=== PATIENT | female | born 1970 | race Caucasian/White ===

== ENCOUNTER 2020-07-09 09:34 | Outpatient (RCR) | payer OTHER, SELFPAY ==
[2015-01-07 10:27] VITALS: BMI 20.2
[2020-07-09] MEDS: COVID-19 VACC, MRNA(PFIZER)/PF 30 MCG/0.3 ML SYRINGE IM (07:12)
[2020-07-30] MEDS: COVID-19 VACC, MRNA(PFIZER)/PF 30 MCG/0.3 ML SYRINGE IM (07:07)
== END 2020-07-09 23:59 ==
LOC: IMMUN 09:34
PROVIDERS: Visit Provider Family Medicine
DX: Z23 Encounter for immunization (principal)
CPT/HCPCS: 0001A; 0002A; 91300

== ENCOUNTER 2023-04-24 09:28 | Emergency (ER) | payer BC, SELFPAY ==
[2023-04-24 09:29] VITALS: BP 120/67; PULSE 74; RESP 14; TEMP 37.2; O2SAT 100; BMI 23.7
--- NOTE | 2023-04-24 09:50 | EDS_ITS ---
HPI History of Present Illness Chief Complaint: Other, Pain/Inj Narrative Narrative: Patient presents with a sore area on the posterior left side of her throat. As ago, patient was eating a piece of pineapple at a constitution party. As she swallowed it she just noticed that there was a unhealed section on it so it had some of the rough or outside. She had discomfort when she swallowed it like it poked into her throat. She was concerned that part of the spike of the outside skin might be still in the throat. She tried to pull that out with fingers. She caused a small amount of bleeding but that stopped. She just wants to make sure that there is not going to be notable swelling or problems that she is about to go away on a ski vacation. She is on no medications and has no chronic medical conditions. She is not having trouble swallowing at this time but the area is slightly sore. Voice is unchanged. PFSH PFSH Home Medications oxycodone-acetaminophen 5 mg-325 mg tablet 1 - 2 tab PO Q4H PRN PRN Pain #30 tabs 01/07/15 [Rx Last Taken Unknown] Allergy/AdvReac Type Severity Reaction Status Date / Time No Known Allergies Allergy Verified 12/30/14 16:23 Social History Smoking Status: Never smoker ROS ROS ED Constitutional Constitutional ED: Denies chills or fever(s) ENT ENT ED: Reports sore throat; Denies ear pain or rhinorrhea Cardiovascular Cardiovascular: Denies chest pain Respiratory/Chest Respiratory/Chest: Denies cough or dyspnea Gastrointestinal Gastrointestinal: Denies nausea or vomiting Integumentary Reports Abrasions; Denies abscess or rash Neurologic Neurologic: Denies headache(s) Hematologic/Lymphatic Hematologic/Lymphatic: Denies easy bleeding or easy bruising Allergic/Immunologic Allergic/Immunologic ED: Denies urticaria EXAM Physical Exam Narrative Exam Narrative: General: Patient awake alert sitting comfortably in bed. Vitals normal. Speech is normal carries on normal conversation nontoxic. HEENT: No external swelling. Again, speech is normal. Nasal passages are normal. Internally I can see a small area of abrasion that is about 1 x 3 mm on the posterior left aspect of the soft palate. There is no swelling locally. But there is some slight bruising around it. I do not see any foreign material protruding. There is no fullness. I can press the area with the tongue blade and there is no catching as if there was something sticking out. There is no sign of infection. Neck: No sign of external swelling or lymphadenopathy Cardiorespiratory shows easy unlabored breathing clear lungs and normal saturations at 100% on room air showing no hypoxia. Const Vital Signs: 04/24/23 09:29 Temperature 98.9 F Temperature Source Temporal Pulse Rate 74 Respiratory Rate 14 Blood Pressure 120/67 Blood Pressure Mean 84 Pulse Ox 100 Oxygen Delivery Method Room Air MDM MDM MDM Narrative Medical decision making narrative: I explained to the patient that certainly possible she could have gotten some fibers of this pineapple in the posterior pharynx. But the damage done trying to take out what cannot be seen would be much greater than letting this come out on its own. If there is something there will likely get local inflammation and then drain and work itself out. But my suspicion is that this is more likely an abrasion and will heal without issue. She can do warm salt water gargles. She could dab a small amount of Orajel on a Q-tip right on the area if it is h urting. She should avoid hot or spicy foods. If she develops swelling, fevers, trouble breathing or swallowing she should return. I do not think there is indication for CT scan or blood work at this time. Discharge Plan Triage Chief Complaint: Other, Pain/Inj ED Provider: Devonte Mcmahan Dx/Rx/DC Orders Clinical Impression: Abrasion of pharynx Instructions: ED Pharyngeal Abrasion Prescriptions: No Action oxycodone-acetaminophen 1 TABLET tablet 1 - 2 tab PO Q4H PRN PRN (Reason: Pain) Qty: 30 0RF Primary Care Provider: Care Physician,No Primary Referrals: Care Physician,No Primary [Primary Care Provider] - Activity Restrictions/Additional Instructions: Follow-up with your physician if not better in 2 to 3 days. You may use a small amount of Orajel on a Q-tip to dab on the area occasionally for local pain relief. Disposition Disposition: Home, Self Care
--- OUTSIDE RECORDS SUMMARY | 2023-04-24 10:25 | XMS RPT_ITS | CCD ---
Author Name Unknown Address [address] [place] [address] Organization [facility] Care Team Providers Care [employer] Name Role Phone Unavailable Primary Care Provider MAUDE Escalera Attending Unavailable MAUDE NIÑO Referring Unavailable LENY JACOBSEN Referring Unavailable LENY JACOBSEN Attending Unavailable Unavailable Primary Care Provider Byron gonzalez Allergies Allergy Classification Reported Allergen(s) Allergy Type Date of Onset Reaction(s) Facility (9 sources) Seasonal allergy; Translations: [SEASONAL ALLERGIES] Allergy to substance 10-18-2012 Itching [facility] (9 sources) Bees; Translations: [BEES] Propensity to adverse reactions 05-24-2006 [facility] Work Phone: Medications Current Medications Medication Drug Class(es) Dates Sig (Normalized) Sig (Original) azithromycin 250 mg oral tablet (1 source) Macrolide Antimicrobial Start: 10-08-2022 End: 10-13-2022 azithromycin (ZITHROMAX Z-GENE) 250 mg tablet Indications: Bronchitis Take 2 tablets day one, then, 1 tablet daily until gone. 6 tablet 0 10/08/2022 10/13/2022 Active Completed/Discontinued Medications Medication Drug Class(es) Dates Sig (Normalized) Sig (Original) [id number] 200 actuat albuterol 0.09 mg/actuat metered dose inhaler (3 sources) beta2-Adrenergic Agonist Start: 05-01-2021 End: 05-11-2022 take 2 puff(s) by inhalation every six hours as needed for wheezing albuterol HFA (PROVENTIL HFA, VENTOLIN HFA) 90 mcg/actuation inhaler Inhale 2 Puffs as instructed every 6 hours as needed for wheezing/shortness of breath. 1 Each 0 05/01/2021 05/11/2022 Discontinued Problems Problem Classification Problem Date Documented Date Episodic/Chronic Chronic obstructive pulmonary disease and bronchiectasis (1 source) Bronchitis; Translations: [Bronchitis, not specified as acute or chronic] Episodic Genitourinary symptoms and ill-defined conditions (2 sources) Increased frequency of urination; Translations: [Frequency of micturition] Episodic Menopausal disorders (1 source) Vaginal dryness; Translations: [Menopausal and female climacteric states] Chronic Nonmalignant breast conditions (9 sources) Mammographic microcalcification of breast; Translations: [Mammographic microcalcification found on diagnostic imaging of breast] Onset: 5 11-08-2014 Episodic Other screening for suspected conditions (not mental disorders or infectious disease) (7 sources) Patient encounter status; Translations: [Encounter for screening for malignant neoplasm of colon] Onset: 2 Episodic Unclassified (1 source) Dense breast tissue; Translations: [Dense breast tissue] Onset: 3 Results Test Name Value Interpretation Reference Range Facil ity Vital Signs Date Time Vital Sign Value Performing Clinician Jamari lity 10-08-2022 15:03-0400 Body temperature 97.81 [degF] Carlene Rosario MOLDED GRID AND PARTS INSPECTOR.AERONAUTICAL PROJECT ENGINEER Work Phone: [facility] 10-08-2022 15:03-0400 Body weight 55.52 kg Carlene Rosario APRN.AERONAUTICAL PROJECT ENGINEER Work Phone: [facility] 10-08-2022 15:03-0400 Diastolic blood pressure 78 mm[Hg] Carlene Rosario MOLDED GRID AND PARTS INSPECTOR.AERONAUTICAL PROJECT ENGINEER Work Phone: [facility] 10-08-2022 15:03-0400 Heart rate 69 /min Carlene Rosario MOLDED GRID AND PARTS INSPECTOR.AERONAUTICAL PROJECT ENGINEER Work Phone: [facility] 10-08-2022 15:03-0400 Respiratory rate 16 /min Carlene Rosario MOLDED GRID AND PARTS INSPECTOR.AERONAUTICAL PROJECT ENGINEER Work Phone: [facility] 10-08-2022 15:03-0400 SaO2% (BldA) [Mass fraction] 97 % Carlene Rosario MOLDED GRID AND PARTS INSPECTOR.AERONAUTICAL PROJECT ENGINEER Work Phone: [facility] 10-08-2022 15:03-0400 Systolic blood pressure 122 mm[Hg] Carlene Rosario MOLDED GRID AND PARTS INSPECTOR.AERONAUTICAL PROJECT ENGINEER Work Phone: [facility] 06-23-2022 18:23-0500 Body temperature 98.01 [degF] Monica Praisler-Wood MOLDED GRID AND PARTS INSPECTOR.AERONAUTICAL PROJECT ENGINEER Work Phone: [facility] 06-23-2022 18:23-0500 Diastolic blood pressure 60 mm[Hg] Monica Praisler-Wood MOLDED GRID AND PARTS INSPECTOR.AERONAUTICAL PROJECT ENGINEER Work Phone: [facility] 06-23-2022 18:23-0500 Heart rate 69 /min Monica Praisler-Wood MOLDED GRID AND PARTS INSPECTOR.AERONAUTICAL PROJECT ENGINEER Work Phone: [facility] 06-23-2022 18:23-0500 Respiratory rate 16 /min Monica Praisler-Wood MOLDED GRID AND PARTS INSPECTOR.AERONAUTICAL PROJECT ENGINEER Work Phone: [facility] 06-23-2022 18:23-0500 SaO2% (BldA) [Mass fraction] 100 % Monica Praisler-Wood MOLDED GRID AND PARTS INSPECTOR.AERONAUTICAL PROJECT ENGINEER Work Phone: [facility] 06-23-2022 18:23-0500 Systolic blood pressure 110 mm[Hg] Monica Praisler-Wood MOLDED GRID AND PARTS INSPECTOR.AERONAUTICAL PROJECT ENGINEER Work Phone: [facility] 05-11-2022 12:57-0500 Body height 156.8 cm Leny Jacobsen APRN.AERONAUTICAL PROJECT ENGINEER Work Phone: [facility] 05-11-2022 12:57-0500 Body weight 56.25 kg Leny Jacobsen APRN.AERONAUTICAL PROJECT ENGINEER Work Phone: [facility] 05-11-2022 12:57-0500 Diastolic blood pressure 68 mm[Hg] Leny Jacobsen MOLDED GRID AND PARTS INSPECTOR.AERONAUTICAL PROJECT ENGINEER Work Phone: [facility] 05-11-2022 12:57-0500 Systolic blood pressure 112 mm[Hg] Leny Jacobsen MOLDED GRID AND PARTS INSPECTOR.AERONAUTICAL PROJECT ENGINEER Work Phone: [facility] 02-23-2022 09:35-0400 Diastolic blood pressure 55 mm[Hg] Maude Niño MD Work Phone: [facility] 02-23-2022 09:35-0400 Heart rate 69 /min Maude Niño MD Work Phone: [facility] 02-23-2022 09:35-0400 SaO2% (BldA) [Mass fraction] 100 % Maude Niño MD Work Phone: [facility] 02-23-2022 09:35-0400 Systolic blood pressure 110 mm[Hg] Maude Niño MD Work Phone: [facility] 02-23-2022 09:25-0400 Respiratory rate 16 /min Maude Niño MD Work Phone: [facility] 02-23-2022 07:41-0400 Body temperature 98.29 [degF] Maude Niño MD Work Phone: [facility] 02-23-2022 07:41-0400 Body weight 55.6 kg Maude Niño MD Work Phone: [facility] Encounters Encounter Date Encounter Type Care Provider Facility Start: 02-04-2023 Documentation procedure Mammog sandy Coordinator [facility] Start: 02-04-2023 Letter encounter Mammography Coordinator [facility] Department Start: 02-03-2023 End: 02-03-2023 ambulatory LENY JACOBSEN Facility:[facility] Start: 02-03-2023 End: 02-03-2023 Subsequent hospital visit by physician Screen Mammo [facility] Wstr Mammogram Procedures Date Procedure Procedure Detail Performing Clinician Start: 02-03-2023 Screening digital br east tomosynthesis bi Leny Jacobsen MOLDED GRID AND PARTS INSPECTOR.AERONAUTICAL PROJECT ENGINEER Work Phone: Start: 06-23-2022 Urnls dip stick/tabl et rgnt auto w/o microscopy Raj Aldana MOLDED GRID AND PARTS INSPECTOR.AERONAUTICAL PROJECT ENGINEER Work Phone: Start: 02-23-2022 Colonoscopy flx dx w /collj spec when pfrmd Maude Niño MD Work Phone: Start: 02-23-2022 Colonoscopy Leny gonzalez MOLDED GRID AND PARTS INSPECTOR.AERONAUTICAL PROJECT ENGINEER Work Phone: Start: 10-27-2020 Mammography Maude Niño MD Work Phone: Start: 09-24-2015 Adult depression scr eening assessment Maude Niño MD Work Phone: Plan of Treatment Date Care Activity Detail Author Start: 02-24-2032 Colonoscopy COLONOSCOPY [facility] Start: 02-24-2032 COLORECTAL CANCER SCREENING COLORECTAL CANCER SCREENING [facility] Start: 10-09-2025 HPV TESTING HPV TESTING [facility] Start: 10-09-2025 PAP TESTING PAP TESTING [facility] Start: 02-04-2024 Mammography Mammogram Screening [facility] Start: 12-23-2022 Covid-19 Vaccine () Covid-19 Vaccine () [facility] Start: 12-23-2022 Influenza vaccination [facility] Start: 05-29-2022 Shingrix Vaccine (2 of 2) Shingrix Vaccine (2 of 2) [facility] Start: 04-24-2022 DEPRESSION ASSESSMENT DEPRESSION ASSESSMENT [facility] Start: 12-23-2021 Influenza vaccination INFLUENZA (#1) [facility] Start: 10-27-2021 Mammography MAMMOGRAM [facility] Start: 07-28-2021 COVID-19 VACCINE (4 - Booster for Pfizer series) COVID-19 VACCINE (4 - Booster for Pfizer series) [facility] Start: 07-31-2019 Urine microalbumin profile [facility] Start: 2018 SHINGRIX VACCINE (1 of 2) SHINGRIX VACCINE (1 of 2) [facility] Start: 09-23-2016 Adult depression screening assessment DEPRESSION SCREENING [facility] Start: 2013 COLOGUARD (FIT-DNA) COLOGUARD (FIT-DNA) [facility] Start: 2013 Colonoscopy COLONOSCOPY [facility] Start: 2013 COLORECTAL CANCER SCREENING COLORECTAL CANCER SCREENING [facility] Start: [address] COLONOGRAPHY [facility] Start: 2013 DIABETES SCREEN DIABETES SCREEN [facility] Start: 2013 Diabetes Screening Diabetes Screening [facility] Start: 2013 FECAL OCCULT BLOOD FECAL OCCULT BLOOD [facility] Start: 2013 Lipid 1996 panel - Serum or Plasma Lipid Screening [facility] Start: 2013 LIPID SCREEN LIPID SCREEN [facility] Start: 2013 SIGMOIDOSCOPY SIGMOIDOSCOPY [facility] Start: 1986 HEPATITIS C SCREENING HEPATITIS C SCREENING [facility] Start: 1986 HIV SCREENING HIV SCREENING [facility] Start: 1968 HEPATITIS B (1 of 3 - 3-dose series) HEPATITIS B (1 of 3 - 3-dose series) [facility] Start: 1968 Hepatitis B Vaccine (1 of 3 - 3-dose series) Hepatitis B Vaccine (1 of 3 - 3-dose series) [facility] Bacteria identified in Urine by Culture URINE CULTURE Microbiology Routine Urinary frequency 06/23/2022 7:43 PM EST [facility] Work Phone: End: 06-10-2023 FAY SCREENING W ELLIS FAY SCREENING W ELLIS Radiology Routine Encounter for screening mammogram for breast cancer Dense breast tissue 1 Occurrences starting 05/11/2022 until 06/10/2023 [facility] Work Phone: Immunizations Immunization Date Immunization Notes Care Provider Marshall talbot 01-31-2021 influenza virus vaccine, unspecified formulation Mammography Coordinator [facility] 07-30-2009 tetanus toxoid, redu demetrius diphtheria toxoid, and acellular pertussis vaccine, adsorbed Maude Niño MD Work Phone: [facility] Payers Date Payer Category Payer Unknown [id number] 2021 Unknown [id number] 2021 Unknown [id number] Social History Date Type Detail Facility Start: 02-23-2022 Tobacco smoking stat us SCIS Never smoked tobacco [facility] Work Phone: Start: 05-08-2021 End: 03-24-2022 Alcohol intake Current non-drinker of alcohol (finding) [facility] Start: 1970 Sex Assigned At Female C [facility] Start: 02-23-2022 Tobacco use and exposure Smokeless tobacco non-user [facility] Start: 05-11-2022 End: 10-08-2022 Alcohol intake Current drinker of alcohol (finding) [facility] Start: 05-11-2022 Alcohol Comment occasional [facility] Start: 03-31-2020 End: 10-08-2022 History of Social function [facility] Start: 03-31-2020 End: 10-08-2022 Tobacco use panel [facility] National Score (1-10 0), lower number is lower risk 60 [facility] Start: 01-13-2021 Gender identity Identifies as female gender (finding) [facility] Start: 01-13-2021 Sexual orientation Heterosexual (fin ding) [facility] Start: 02-13-2022 End: 02-23-2022 Exposure to SARS-CoV-2 (event) Not sure [facility] Clinical Notes 01-05-2022 to 02-04-2023 Letter - Coordinator, Mammography - 02/04/2023 7:26 AM EDTBSamina gilbert, Mammo Tech - 02/03/2023 9:10 AM EDTPatient InstructionsCarlene Rosario APRN.AERONAUTICAL PROJECT ENGINEER - 10/08/2022 3:08 PM EDTPatient Instructions Note Date & Type Note Facility 02-04-2023 Miscellaneous Notes February 06, 2023 PID: [id number] Vinita Panfilo Raines [address] [place] [address] Dear Ms. Raines, We are pleased to inform you that the results of your recent breast imaging exam on 02/03/2023 are normal. Your mammogram demonstrates that you have dense breast tissue, which could hide abnormalities. Dense breast tissue, in and of itself, is a relatively common condition. Therefore, this information is not provided to cause undue concern; rather, it is to raise your awareness and promote discussion with your health care provider regarding the presence of dense breast tissue in addition to other risk factors. Early detection of cancer is very important. We also understand recommendations regarding breast cancer screening are controversial. Please discuss with your primary care provider which strategy is best for you and whether a mammogram is right for you. Your imaging studies and report will be kept on file at [facility] as part of your permanent medical record and are available for your continuing care. Thank you for allowing us to help in meeting your health care needs. Sincerely, Dr. Magana Interpreting Radiologist [facility] (Normal over 40) documented in this encounter [facility] 02-03-2023 Note HNO ID: [id number] Author: Samina Mallory Mammo Tech Service: ? Author Type: Control System Manager Type: Progress Notes Filed: 02/03/2023 9:09 AM Note Text: Radiology Service Progress Note PATIENT NAME: Vinita Raines DATE OF SERVICE: February 03, 2023 TIME: 8:49 AM PATIENT IDENTITY VERIFICATION COMPLETED USING TWO (2) IDENTIFIERS: Name and Date of confirmed by patient verbally. FALL SCREENING: Has the patient had 2 falls in the last year or 1 fall with injury or currently using an Ambulatory Assistive Device (Walker, Cane, Wheelchair, Crutches, etc.)? No PATIENT GENDER DATA: Female. status: : No status: NO. PATIENT RELEVANT IMPLANT DATA REVIEWED: Not Applicable RADIOLOGY DEPARTMENT: Mammography PERIPHERAL IV DATA: Not applicable SIGNED BY: Brayan Mckenna February 03, 2023 8:49 AM [facility] 02-03-2023 History of Presen t illness Narrative Radiology Service Progress Note PATIENT NAME: Vinita Raines DATE OF SERVICE: February 03, 2023 TIME: 8:49 AM PATIENT IDENTITY VERIFICATION COMPLETED USING TWO (2) IDENTIFIERS: Name and Date of confirmed by patient verbally. FALL SCREENING: Has the patient had 2 falls in the last year or 1 fall with injury or currently using an Ambulatory Assistive Device (Walker, Cane, Wheelchair, Crutches, etc.)? No PATIENT GENDER DATA: Female. status: : No status: NO. PATIENT RELEVANT IMPLANT DATA REVIEWED: Not Applicable RADIOLOGY DEPARTMENT: Mammography PERIPHERAL IV DATA: Not applicable SIGNED BY: Brayan Mckenna February 03, 2023 8:49 AM documented in this encounter [facility] 10-08-2022 Note HNO ID: [id number] Author: Carlene Rosario APRN.ISIS Service: ? Author Type: Nurse Practitioner Type: Progress Notes Filed: 10/08/2022 3:28 PM Note Text: This is a 52 year old female who presents today with: Patient presents with: Cough: Cough x 10 days HISTORY OF PRESENT ILLNESS: Vinita Raines is a 52 year old female. Patient presents with: Cough: Cough x 10 days Cough for 10 days. Was initially dry and now seems to productive. Cream color mucus. No SOB or wheezing. Mild sore throat, post nasal drip. Was in [place] 11 days ago. No fever or chills. At home covid test was negative. Has tried Nyquil at bed time. Will be going to [place] in the next 10 days. PAST MEDICAL HISTORY: PAST MEDICAL HISTORY Diagnosis Date H/O bee sting allergy treated with oral antihistamines PAST SURGICAL HISTORY Procedure Laterality Date COLONOSCOPY 02/23/2022 repeat in 10 years LIG/TRNSXJ FLP TUBE ABDL/VAG APPR UNI/BI TONSILLECTOMY HX ALLERGIES Bees and Seasonal Allergies MEDICATIONS Current Outpatient Medications Medication Sig estradiol (ESTRACE) 0.01 % (0.1 mg/gram) vaginal cream Use 0.5 g vaginally two times a week. MULTIVITAMIN ORAL Take by mouth. phenazopyridine (PYRIDIUM) 200 mg tablet Take 1 tablet by mouth three times daily as needed. No current facility-administered medications for this visit. FAMILY HISTORY Problem Relation Age of Onset No Known Problems Mother Cancer Father PROSTATE Heart Father A Fib No Known Problems Sister No Known Problems Sister Breast Cancer Maternal Grandmother Diabetes Maternal Grandfather Stroke Paternal Grandfather No Known Problems Daughter No Known Problems Son Breast Cancer Other maternal cousin, negative genetic test for inheritable form Social History Tobacco Use Smoking status: Never Smokeless tobacco: Never Vaping Use Vaping Use: Never used Substance Use Topics Alcohol use: Yes Comment: occasional Drug use: No REVIEW OF SYSTEMS GENERAL: No weight loss, malaise or fevers/chills HEENT: + Sore Throat, post nasal drip NECK: Negative for lumps, goiter, pain and significant neck swelling RESPIRATORY: + Cough CARDIOVASCULAR: Negative for chest pain, leg swelling, orthopnea, or palpitations GI: No nausea, vomiting, or diarrhea/constipation. No hematochezia/melena. No heartburn or reflux symptoms. : No history of dysuria, frequency or incontinence MUSCULOSKELETAL: Negative for joint pain or swelling. SKIN: Negative for lesions, rash, and itching ENDOCRINE: Negative for cold or heat intolerance, polyuria, polydipsia and goiter NEURO: No history of headaches, syncope, paralysis, seizures or tremors MOOD: Negative for depression, anxiety, or suicidal ideation. EXAM: BP 122/78 Pulse 69 Temp 36.6 ?C (97.8 ?F) (Tympanic) Resp 16 Wt 55.5 kg (122 lb 6.4 oz) LMP 09/24/2018 SpO2 97% BMI 22.57 kg/m? PHYSICAL EXAM: General Appearance: Well appearing, alert, in no acute distress, well-hydrated, well nourished. Skin: Skin color, texture, turgor normal, no suspicious rashes or lesions. Head: Normocephalic, no masses, lesions, tenderness or abnormalities. Eyes: Anicteric sclera. Extraocular movements are intact. Ears: External ears normal, canals clear. TM's pearly wilson. Nose/Sinuses: Nares normal, septum midline, mucosa normal, no drainage or sinus tenderness. Oropharynx: Lips, mucosa, and tongue normal, teeth and gums normal, oropharynx normal. Neck: Supple, no adenopathy; thyroid symmetric, normal size, no bruits. Lungs: Lungs clear to auscultation. No wheezing, rhonchi, rales. Heart: RRR without murmur, gallop, or rubs. No ectopy. Extremities: No deformities, edema, skin discoloration, clubbing or cyanosis. Good capillary refill. . Peripheral Pulses: Normal, Capillary refill <2secs, strong peripheral pulses, Pulses palpable. Neurologic: Gait normal. Sensation grossly intact. ASSESSMENT/PLAN: 1. Bronchitis - ICD9: 490, ICD10: J40 - Due to going symptoms and upcoming travel, may start Z-Geen if symptoms do not improve the next 3 to 5 days. - Start prednisone 20 mg daily for 5 days. - May use [id number] cold and cough medication as needed for symptom management. - AZITHROMYCIN 250 MG TABLET - PREDNISONE 20 MG TABLET Follow-up as needed or sooner if symptoms do not improve. Discussed treatment plan and patient voices understanding. Patient's questions answered appropriately. Medications and potential side effects were discussed and patient voices understanding. Carlene Rosario APRN.AERONAUTICAL PROJECT ENGINEER This note was partially generated using [employer] voice recognition system. Note was reviewed for accuracy. There may be minor misspellings or grammar miscues with [employer] voice recognition. [facility] 10-08-2022 Instructions Carlene Rosario APRN.ISIS - 10/08/2022 3:17 PM EDT If symptoms do not improve, start zpack Start Prednisone 20 mg daily for 5 days. Stay well hydrated. Recommend using Flonase 1-2 times per day. May use over the counter cold and cough medication as needed. Follow up as needed. documented in this encounter [facility] 10-08-2022 History of Presen t illness Narrative This is a 52 year old female who presents today with: Patient presents with: Cough: Cough x 10 days HISTORY OF PRESENT ILLNESS: Vinita Raines is a 52 year old female. Patient presents with: Cough: Cough x 10 days Cough for 10 days. Was initially dry and now seems to productive. Cream color mucus. No SOB or wheezing. Mild sore throat, post nasal drip. Was in [place] 11 days ago. No fever or chills. At home covid test was negative. Has tried Nyquil at bed time. Will be going to [place] in the next 10 days. PAST MEDICAL HISTORY: PAST MEDICAL HISTORY Diagnosis Date H/O bee sting allergy treated with oral antihistamines PAST SURGICAL HISTORY Procedure Laterality Date COLONOSCOPY 02/23/2022 repeat in 10 years LIG/TRNSXJ FLP TUBE ABDL/VAG APPR UNI/BI TONSILLECTOMY HX ALLERGIES Bees and Seasonal Allergies MEDICATIONS Current Outpatient Medications Medication Sig estradiol (ESTRACE) 0.01 % (0.1 mg/gram) vaginal cream Use 0.5 g vaginally two times a week. MULTIVITAMIN ORAL Take by mouth. phenazopyridine (PYRIDIUM) 200 mg tablet Take 1 tablet by mouth three times daily as needed. No current facility-administered medications for this visit. FAMILY HISTORY Problem Relation Age of Onset No Known Problems Mother Cancer Father PROSTATE Heart Father A Fib No Known Problems Sister No Known Problems Sister Breast Cancer Maternal Grandmother Diabetes Maternal Grandfather Stroke Paternal Grandfather No Known Problems Daughter No Known Problems Son Breast Cancer Other maternal cousin, negative genetic test for inheritable form Social History Tobacco Use Smoking status: Never Smokeless tobacco: Never Vaping Use Vaping Use: Never used Substance Use Topics Alcohol use: Yes Comment: occasional Drug use: No REVIEW OF SYSTEMS GENERAL: No weight loss, malaise or fevers/chills HEENT: + Sore Throat, post nasal drip NECK: Negative for lumps, goiter, pain and significant neck swelling RESPIRATORY: + Cough CARDIOVASCULAR: Negative for chest pain, leg swelling, orthopnea, or palpitations GI: No nausea, vomiting, or diarrhea/constipation. No hematochezia/melena. No heartburn or reflux symptoms. : No history of dysuria, frequency or incontinence MUSCULOSKELETAL: Negative for joint pain or swelling. SKIN: Negative for lesions, rash, and itching ENDOCRINE: Negative for cold or heat intolerance, polyuria, polydipsia and goiter NEURO: No history of headaches, syncope, paralysis, seizures or tremors MOOD: Negative for depression, anxiety, or suicidal ideation. EXAM: BP 122/78 Pulse 69 Temp 36.6 C (97.8 F) (Tympanic) Resp 16 Wt 55.5 kg (122 lb 6.4 oz) LMP 09/24/2018 SpO2 97% BMI 22.57 kg/m PHYSICAL EXAM: General Appearance: Well appearing, alert, in no acute distress, well-hydrated, well nourished. Skin: Skin color, texture, turgor normal, no suspicious rashes or lesions. Head: Normocephalic, no masses, lesions, tenderness or abnormalities. Eyes: Anicteric sclera. Extraocular movements are intact. Ears: External ears normal, canals clear. TM's pearly wilson. Nose/Sinuses: Nares normal, septum midline, mucosa normal, no drainage or sinus tenderness. Oropharynx: Lips, mucosa, and tongue normal, teeth and gums normal, oropharynx normal. Neck: Supple, no adenopathy; thyroid symmetric, normal size, no bruits. Lungs: Lungs clear to auscultation. No wheezing, rhonchi, rales. Heart: RRR without murmur, gallop, or rubs. No ectopy. Extremities: No deformities, edema, skin discoloration, clubbing or cyanosis. Good capillary refill. . Peripheral Pulses: Normal, Capillary refill <2secs, strong peripheral pulses, Pulses palpable. Neurologic: Gait normal. Sensation grossly intact. ASSESSMENT/PLAN: 1. Bronchitis - ICD9: 490, ICD10: J40 - Due to going symptoms and upcoming travel, may start Z-Gene if symptoms do not improve the next 3 to 5 days. - Start prednisone 20 mg daily for 5 days. - May use [id number] cold and cough medication as needed for symptom management. - AZITHROMYCIN 250 MG TABLET - PREDNISONE 20 MG TABLET Follow-up as needed or sooner if symptoms do not improve. Discussed treatment plan and patient voices understanding. Patient's questions answered appropriately. Medications and potential side effects were discussed and patient voices understanding. Carlene Rosario APRN.ISIS This note was partially generated using [employer] voice recognition system. Note was reviewed for accuracy. There may be minor misspellings or grammar miscues with [employer] voice recognition. documented in this encounter [facility] 06-25-2022 Miscellaneous Notes Was called and states she feels so much better on the antibiotic. Patient is getting continue antibiotic until it is completed. Patient will follow-up if anything new arises. documented in this encounter [facility] 06-23-2022 Note HNO ID: [id number] Author: Monica Oseguera APRN.ISIS Service: ? Author Type: Nurse Practitioner Type: Progress Notes Filed: 06/23/2022 6:39 PM Note Text: Subjective HPI Vinita Raines is a 52 year old female who presents with dysuria, frequency, and bladder pressure. Symptoms started yesterday. She feels tired also. She took a COVID test which was negative. She has not taken any medication today. She denies back pain, abdominal pain, fever, nausea or vomiting. Review of Systems Constitutional: Positive for malaise/fatigue. Negative for chills and fever. Respiratory: Negative. Cardiovascular: Negative. Gastrointestinal: Negative for abdominal pain, nausea and vomiting. Genitourinary: Positive for dysuria and frequency. Musculoskeletal: Negative for back pain. BP 110/60 Pulse 69 Temp 36.7 ?C (98 ?F) (Tympanic) Resp 16 LMP 09/24/2018 SpO2 100% PAST MEDICAL HISTORY Diagnosis Date H/O bee sting allergy treated with oral antihistamines PAST SURGICAL HISTORY Procedure Laterality Date COLONOSCOPY 02/23/2022 repeat in 10 years LIG/TRNSXJ FLP TUBE ABDL/VAG APPR UNI/BI TONSILLECTOMY HX ALLERGIES Bees and Seasonal Allergies MEDICATIONS estradiol (ESTRACE) 0.01 % (0.1 mg/gram) vaginal cream Use 0.5 g vaginally two times a week. MULTIVITAMIN ORAL Take by mouth. nitrofurantoin monohydrate and macrocrystal (MACROBID) 100 mg capsule Take 1 capsule by mouth twice daily for 7 days. phenazopyridine (PYRIDIUM) 200 mg tablet Take 1 tablet by mouth three times daily as needed. FAMILY HISTORY Problem Relation Age of Onset No Known Problems Mother Cancer Father PROSTATE Heart Father A Fib No Known Problems Sister No Known Problems Sister Breast Cancer Maternal Grandmother Diabetes Maternal Grandfather Stroke Paternal Grandfather No Known Problems Daughter No Known Problems Son Breast Cancer Other maternal cousin, negative genetic test for inheritable form Social History Tobacco Use Smoking status: Never Smokeless tobacco: Never Vaping Use Vaping Use: Never used Substance Use Topics Alcohol use: Yes Comment: occasional Drug use: No Objective Physical Exam Vitals and nursing note reviewed. Constitutional: General: She is not in acute distress. Appearance: Normal appearance. She is not toxic-appearing. Cardiovascular: Rate and Rhythm: Normal rate and regular rhythm. Heart sounds: Normal heart sounds. Pulmonary: Effort: Pulmonary effort is normal. No respiratory distress. Breath sounds: Normal breath sounds. No wheezing or rales. Abdominal: General: There is no distension. Palpations: Abdomen is soft. There is no mass. Tenderness: There is abdominal tenderness in the suprapubic area. There is no right CVA tenderness, left CVA tenderness or guarding. Skin: General: Skin is warm and dry. Neurological: Mental Status: She is alert. ASSESSMENT/PLAN: 1. Urinary frequency - ICD9: 788.41, ICD10: R35.0 (primary diagnosis) acute - UA positive for davey esterase, hematuria, and proteinuria - Send urine for culture - Begin treatment with Macrobid 100 mg BID for 7 days - Patient education for prevention given - UA DIP, URINE (POC) - URINE CULTURE - NITROFURANTOIN MONOHYDRATE AND MACROCRYSTAL 100 MG ORAL CAP 2. Dysuria - ICD9: 788.1, ICD10: R30.0 - PHENAZOPYRIDINE 200 MG TABLET - Follow-up with your PCP in 3-5 days if symptoms have not improved or sooner if symptoms worsen - Discussed red flags and need for immediate medical evaluation if any occur. - Discussed supportive care treatment with fluids, rest and analgesia. - Discussed expected course of illness Monica Oseguera APRN.[facility] 06-23-2022 History of Presen t illness Narrative Subjective HPI Vinita Diane Raines is a 52 year old female who presents with dysuria, frequency, and bladder pressure. Symptoms started yesterday. She feels tired also. She took a COVID test which was negative. She has not taken any medication today. She denies back pain, abdominal pain, fever, nausea or vomiting. Review of Systems Constitutional: Positive for malaise/fatigue. Negative for chills and fever. Respiratory: Negative. Cardiovascular: Negative. Gastrointestinal: Negative for abdominal pain, nausea and vomiting. Genitourinary: Positive for dysuria and frequency. Musculoskeletal: Negative for back pain. BP 110/60 Pulse 69 Temp 36.7 C (98 F) (Tympanic) Resp 16 LMP 09/24/2018 SpO2 100% PAST MEDICAL HISTORY Diagnosis Date H/O bee sting allergy treated with oral antihistamines PAST SURGICAL HISTORY Procedure Laterality Date COLONOSCOPY 02/23/2022 repeat in 10 years LIG/TRNSXJ FLP TUBE ABDL/VAG APPR UNI/BI TONSILLECTOMY HX ALLERGIES Bees and Seasonal Allergies MEDICATIONS estradiol (ESTRACE) 0.01 % (0.1 mg/gram) vaginal cream Use 0.5 g vaginally two times a week. MULTIVITAMIN ORAL Take by mouth. nitrofurantoin monohydrate and macrocrystal (MACROBID) 100 mg capsule Take 1 capsule by mouth twice daily for 7 days. phenazopyridine (PYRIDIUM) 200 mg tablet Take 1 tablet by mouth three times daily as needed. FAMILY HISTORY Problem Relation Age of Onset No Known Problems Mother Cancer Father PROSTATE Heart Father A Fib No Known Problems Sister No Known Problems Sister Breast Cancer Maternal Grandmother Diabetes Maternal Grandfather Stroke Paternal Grandfather No Known Problems Daughter No Known Problems Son Breast Cancer Other maternal cousin, negative genetic test for inheritable form Social History Tobacco Use Smoking status: Never Smokeless tobacco: Never Vaping Use Vaping Use: Never used Substance Use Topics Alcohol use: Yes Comment: occasional Drug use: No Objective Physical Exam Vitals and nursing note reviewed. Constitutional: General: She is not in acute distress. Appearance: Normal appearance. She is not toxic-appearing. Cardiovascular: Rate and Rhythm: Normal rate and regular rhythm. Heart sounds: Normal heart sounds. Pulmonary: Effort: Pulmonary effort is normal. No respiratory distress. Breath sounds: Normal breath sounds. No wheezing or rales. Abdominal: General: There is no distension. Palpations: Abdomen is soft. There is no mass. Tenderness: There is abdominal tenderness in the suprapubic area. There is no right CVA tenderness, left CVA tenderness or guarding. Skin: General: Skin is warm and dry. Neurological: Mental Status: She is alert. ASSESSMENT/PLAN: 1. Urinary frequency - ICD9: 788.41, ICD10: R35.0 (primary diagnosis) acute - UA positive for davey esterase, hematuria, and proteinuria - Send urine for culture - Begin treatment with Macrobid 100 mg BID for 7 days - Patient education for prevention given - UA DIP, URINE (POC) - URINE CULTURE - NITROFURANTOIN MONOHYDRATE & MACROCRYSTAL 100 MG ORAL CAP 2. Dysuria - ICD9: 788.1, ICD10: R30.0 - PHENAZOPYRIDINE 200 MG TABLET - Follow-up with your PCP in 3-5 days if symptoms have not improved or sooner if symptoms worsen - Discussed red flags and need for immediate medical evaluation if any occur. - Discussed supportive care treatment with fluids, rest and analgesia. - Discussed expected course of illness Monica Oseguera APRN.CNP documented in this encounter [facility] 06-23-2022 Instructions Monica Oseguera APRN.CNP - 06/23/2022 6:35 PM EST ASSESSMENT/PLAN: 1. Urinary frequency - ICD9: 788.41, ICD10: R35.0 (primary diagnosis) acute - UA positive for davey esterase, hematuria, and proteinuria - Send urine for culture - Begin treatment with Macrobid 100 mg BID for 7 days - Patient education for prevention given - UA DIP, URINE (POC) - URINE CULTURE - NITROFURANTOIN MONOHYDRATE & MACROCRYSTAL 100 MG ORAL CAP 2. Dysuria - ICD9: 788.1, ICD10: R30.0 - PHENAZOPYRIDINE 200 MG TABLET - Follow-up with your PCP in 3-5 days if symptoms have not improved or sooner if symptoms worsen - Discussed red flags and need for immediate medical evaluation if any occur. - Discussed supportive care treatment with fluids, rest and analgesia. - Discussed expected course of illness Monica Oseguera APRN.[facility] PATIENT INFO BLADDER INFECTION OVERVIEW Bladder infections are one of the most common infections, causing symptoms of burning with urination and needing to urinate frequently. A bladder infection is a type of urinary tract infection (UTI). Bladder infections are more common is women than men. Most women have an uncomplicated bladder infection that is easily treated with a short course of antibiotics. In men, bladder infections may also affect the prostate gland, and a longer course of treatment may be needed. BLADDER INFECTION CAUSES The urinary tract includes the kidneys (which filter urine), ureters (the tube that carries urine from the kidneys to the bladder), the bladder (which stores urine), and urethra (the tube that carries urine out of the bladder). Bacteria do not normally live in these areas. However, bacteria normally live close to the urethra in women and men who are not circumcised. Bladder infections occur when bacteria travel up the urethra into the bladder. Factors that increase the risk of developing a bladder infection include: Vaginal sex Use of spermicides History of past bladder infections Diabetes In men, not being circumcised or having anal sex increase the risk of bladder infections. BLADDER INFECTION SYMPTOMS The typical symptoms of a bladder infection include: Pain or burning when urinating Frequent need to urinate Urgent need to urinate Blood in the urine Fever, back pain, nausea, or vomiting are not common symptoms of a bladder infection, but can occur in people with a kidney infection (pyelonephritis). If you have these symptoms, you should call your doctor or nurse immediately. Is it a bladder infection or something else? -- Burning with urination can also occur in people with vaginitis (eg, yeast infection) or urethritis (inflammation of the urethra). For this reason, it is important to call your healthcare provider before assuming you have a bladder infection. BLADDER INFECTION DIAGNOSIS Simple bladder infections are usually diagnosed based upon your symptoms alone. However, most patients, especially those who have bladder infection symptoms for the first time, should see a healthcare provider for urine testing. Urine culture -- A urine culture is a test that uses a sample of urine to try and grow bacteria in a laboratory. It usually requires about 48 hours to get results. However, a urine culture is not always required to diagnose a bladder infection. Urine culture is often recommended if: You have never had a bladder infection before You have symptoms that are not typical for bladder infection You have had resistant bladder infections before You have frequent bladder infections You do not begin to feel better within 24 to 48 hours after starting antibiotics You are BLADDER INFECTION TREATMENT Bladder infection -- In young, healthy adolescents and adults with a bladder infection, the usual treatment includes a three to seven day course of antibiotics. The typical drugs chosen are: trimethoprim-sulfamethoxazole (Bactrim ), nitrofurantoin (Macrobid ), ciprofloxacin (Cipro ) or levofloxacin (Levaquin ). In men, the infection may involve your prostate gland and treatment is usually given for at least 7 days. Your symptoms should begin to resolve within one day after starting treatment. It is important to take the full course of antibiotics to completely eliminate the infection. If your symptoms persist for more than two or three days after starting treatment, call your healthcare provider. If needed, you can take a prescription medication that numbs the bladder and urethra (phenazopyridine [Pyridium ]) to reduce the burning pain of some UTIs. A similar medication is available without a prescription (eg, Uristat). Both medications change the color of the urine (usually blue or orange) and can interfere with laboratory testing. You should not take these medications for more than 48 hours due to the risk of side effects. These medications do not treat the infection and must be taken along with an antibiotic. Some providers recommend drinking more fluids while treating bladder infections to help flush bacteria from the bladder. Others believe that drinking more fluids may dilute the antibiotic in the bladder and make the medication less effective. No studies have been performed to address this issue. There are also no good studies on the effectiveness of cranberry juice for treating a bladder infection; we do not recommend using cranberry juice to treat bladder infections. Follow-up care -- Follow-up testing is not needed in healthy, young men or women with a bladder infection if symptoms resolve. women are usually asked to have a repeat urine culture one to two weeks after treatment has ended to make sure the bacteria are no longer in the urine. RECURRENT BLADDER INFECTIONS Bladder infections versus other causes -- Some adults, especially women, develop bladder infections frequently. In this case, it is important to confirm that your symptoms (eg, pain or burning, frequency, and urgency) are caused by a bladder infection. Symptoms are usually similar from one infection to another. The best way to confirm an infection is to have a urine culture. If your urine culture is negative for infection, other causes of pain, burning, and frequency should be investigated. There is no reason to take antibiotics if your urine culture is negative. Need for further testing -- If you continue to develop bladder infections, you may require further testing. If you continue to notice blood in your urine after your bladder infection has cleared, you should have further testing. Preventing recurrent UTIs -- Women with recurrent urinary tract infections may be advised to take steps to prevent bladder infections, including one or more of the following: Changes in control -- Women who develop frequent bladder infections and use spermicides, particularly those who also use a diaphragm, may be encouraged to use an alternate method of control. Cranberry products -- Taking cranberry juice or cranberry tablets has been promoted as one way to help prevent frequent bladder infections. However, this has not been proven. Drinking more fluid and urinating after intercourse -- Although studies have not proven that drinking more fluids or urinating soon after intercourse can prevent infection, some healthcare providers recommend these measures since they are not harmful. Drinking more fluid may help to wash out bacteria that enter the bladder. Postmenopausal women -- Postmenopausal women who develop recurrent bladder infections may benefit from using vaginal estrogen. Vaginal estrogen is available in a flexible ring that is worn in the vagina for three months (eg, Estring ), a small tablet (Vagifem ), or a cream (eg, Premarin or Estrace ). Vaginal estrogen is discussed in more detail in a separate topic review. Antibiotics -- A preventive antibiotic treatment may be recommended if you repeatedly develop bladder infections and have not responded to other preventive measures. Antibiotics are highly effective in preventing recurrent bladder infections and can be taken in several different ways. Preventive antibiotic -- You can take a low dose of an antibiotic once per day or three times per week for six months to several years. Antibiotics following intercourse -- In women who develop urinary tract infections after sex, taking a single low dose antibiotic after intercourse can help to prevent bladder infections. Self-treatment -- A plan to begin antibiotics at the first sign of a bladder infection may be recommended in some situations. Before starting this regimen, it is important that you have had testing (urine cultures) to confirm that your symptoms are caused by a bladder infection; some people have symptoms of a bladder infection but do not actually have an infection. documented in this encounter [facility] 05-11-2022 Note HNO ID: [id number] Author: Leny Jacobsen APRN.ISIS Service: ? Author Type: Nurse Practitioner Type: Progress Notes Filed: 05/11/2022 1:38 PM Note Text: Cost Specialist offered: Patient declines. Vinita is a 52 year old who presents for an annual gynecologic exam with complaints, discuss hormone replacement therapy . No vasomotor and menopausal symptoms except vaginal dryness with has resolved with vaginal estrogen. Has noticed a decrease in libido. Postmenopausal: no menses age 49 HRT use: No. Last Pap: 10/09/2020 normal HPV: 10/09/2020 negative History of abnormal pap: No Last mammogram: 2020 normal History of abnormal mammogram: Yes right biopsy benign Sexually active: Yes Pain with intercourse: No Postcoital bleeding: No Hot flashes: No Night sweats: No Vaginal dryness: Yes, better with vaginal estrogen cream and lubricant Documentation from previous visit of 10/09/2020 was copied and pasted, documentation has been reviewed and edited as necessary for today's visit. OB History T2 L2 SAB2 IAB0 Ectopic0 Multiple0 Live Births0 Clinical Documentation Improvement Specialist History LMP: 09/24/2018, Postmenopausal Age at Menarche: Age at First : Age at Menopause: Clinical Documentation Improvement Specialist History Comments: Sexual Activity: Yes; Male Contraception: Tubal Ligation PAST MEDICAL HISTORY Diagnosis Date H/O bee sting allergy treated with oral antihistamines NEGATIVE MEDICAL HISTORY PAST SURGICAL HISTORY Procedure Laterality Date COLONOSCOPY 02/23/2022 repeat in 10 years LIG/TRNSXJ FLP TUBE ABDL/VAG APPR UNI/BI TONSILLECTOMY HX FAMILY HISTORY Problem Relation Age of Onset None Mother Cancer Father PROSTATE Heart Father A Fib None Sister Breast Cancer Other maternal cousin, negative genetic test for inheritable form SOCIAL HISTORY Social History Tobacco Use Smoking status: Never Smokeless tobacco: Never Vaping Use Vaping Use: Never used Substance Use Topics Alcohol use: No Drug use: No REVIEW OF SYSTEMS Abdomen: No abdominal pain, nausea, vomiting, diarrhea, or constipation. No bloating, early satiety, indigestion, or increased flatulence. Bladder: No dysuria, gross hematuria, urinary frequency, urinary urgency, or incontinence Breast: No breast lumps, nipple d/c, overlying skin changes, redness or skin retraction Allergies and current medication updated:Yes EXAM: BP 112/68 Ht 5' 1.75 (1.57m) Wt 124 lb (56.2kg) LMP 09/24/2018 BMI 22.88 kg/(m2). GENERAL: pleasant, female in no apparent distress HEENT: Normocephalic, atraumatic, mucus membranes moist, and no lesions NECK: Supple, full range of motion, no adenopathy, and thyroid normal DERMATOLOGY: Normal, without lesions, non-icteric, and non-hirsute BREAST: soft, non-tender, symmetric, no dominant mass, normal nipple-areolar complex, no lymphadenopathy, and no nipple discharge CHEST: Normal inspiratory effort ABDOMEN: soft, non-tender, and no masses PELVIC: external genitalia normal, normal Bartholin's glands, urethra, Grapeview's glands, no vulvar lesions, no cervical lesions, good vaginal support, physiologic discharge present, normal appearing perineal body and perianal region BIMANUAL: uterus normal size, shape and consistency, no adnexal masses, and non-tender RECTOVAGINAL: deferred. NEURO: alert and oriented x3,exam grossly non-focal EXTREMITIES: normal ASSESSMENT/PLAN: 1) Health maintenance: Pap/HPV up to date. Mammogram ordered Mammogram up to date Nutrition, exercise and routine health maintenance exams reviewed. Calcium/Vitamin D supplementation information provided. Colon cancer screening: up to date with screening - discussed indications for HRT. Discussed Ristela supplement for decreasing libido and information given. 2) Follow up one year or sooner as needed Leny Jacobsen APRN.[facility] 05-11-2022 History of Presen t illness Narrative Cost Specialist offered: Patient declines. Vinita is a 52 year old who presents for an annual gynecologic exam with complaints, discuss hormone replacement therapy . No vasomotor and menopausal symptoms except vaginal dryness with has resolved with vaginal estrogen. Has noticed a decrease in libido. Postmenopausal: no menses age 49 HRT use: No. Last Pap: 10/09/2020 normal HPV: 10/09/2020 negative History of abnormal pap: No Last mammogram: 2020 normal History of abnormal mammogram: Yes right biopsy benign Sexually active: Yes Pain with intercourse: No Postcoital bleeding: No Hot flashes: No Night sweats: No Vaginal dryness: Yes, better with vaginal estrogen cream and lubricant Documentation from previous visit of 10/09/2020 was copied and pasted, documentation has been reviewed and edited as necessary for today's visit. OB History T2 L2 SAB2 IAB0 Ectopic0 Multiple0 Live Births0 Clinical Documentation Improvement Specialist History LMP: 09/24/2018, Postmenopausal Age at Menarche: Age at First : Age at Menopause: Clinical Documentation Improvement Specialist History Comments: Sexual Activity: Yes; Male Contraception: Tubal Ligation PAST MEDICAL HISTORY Diagnosis Date H/O bee sting allergy treated with oral antihistamines NEGATIVE MEDICAL HISTORY PAST SURGICAL HISTORY Procedure Laterality Date COLONOSCOPY 02/23/2022 repeat in 10 years LIG/TRNSXJ FLP TUBE ABDL/VAG APPR UNI/BI TONSILLECTOMY HX FAMILY HISTORY Problem Relation Age of Onset None Mother Cancer Father PROSTATE Heart Father A Fib None Sister Breast Cancer Other maternal cousin, negative genetic test for inheritable form SOCIAL HISTORY Social History Tobacco Use Smoking status: Never Smokeless tobacco: Never Vaping Use Vaping Use: Never used Substance Use Topics Alcohol use: No Drug use: No REVIEW OF SYSTEMS Abdomen: No abdominal pain, nausea, vomiting, diarrhea, or constipation. No bloating, early satiety, indigestion, or increased flatulence. Bladder: No dysuria, gross hematuria, urinary frequency, urinary urgency, or incontinence Breast: No breast lumps, nipple d/c, overlying skin changes, redness or skin retraction Allergies and current medication updated:Yes EXAM: BP 112/68 Ht 5' 1.75 (1.57m) Wt 124 lb (56.2kg) LMP 09/24/2018 BMI 22.88 kg/(m^2). GENERAL: pleasant, female in no apparent distress HEENT: Normocephalic, atraumatic, mucus membranes moist, and no lesions NECK: Supple, full range of motion, no adenopathy, and thyroid normal DERMATOLOGY: Normal, without lesions, non-icteric, and non-hirsute BREAST: soft, non-tender, symmetric, no dominant mass, normal nipple-areolar complex, no lymphadenopathy, and no nipple discharge CHEST: Normal inspiratory effort ABDOMEN: soft, non-tender, and no masses PELVIC: external genitalia normal, normal Bartholin's glands, urethra, Grapeview's glands, no vulvar lesions, no cervical lesions, good vaginal support, physiologic discharge present, normal appearing perineal body and perianal region BIMANUAL: uterus normal size, shape and consistency, no adnexal masses, and non-tender RECTOVAGINAL: deferred. NEURO: alert and oriented x3,exam grossly non-focal EXTREMITIES: normal ASSESSMENT/PLAN: 1) Health maintenance: Pap/HPV up to date. Mammogram ordered Mammogram up to date Nutrition, exercise and routine health maintenance exams reviewed. Calcium/Vitamin D supplementation information provided. Colon cancer screening: up to date with screening - discussed indications for HRT. Discussed Ristela supplement for decreasing libido and information given. 2) Follow up one year or sooner as needed Leny Jacobsen APRN.AERONAUTICAL PROJECT ENGINEER documented in this encounter [facility] 02-23-2022 Nurse Note Arrived in phase II via cart. Left lateral position. Sedated, but responds to verbal stimuli. Color normal; skin warm and dry. Respirations wnl and unlabored. Abdomen soft and with + bowel sounds in quads X 4. Patient resting comfortably. Celia Sandoval RN documented in this encounter [facility] 02-23-2022 History and physical note UPDATED PROCEDURAL SEDATION HISTORY AND PHYSICAL EXAMINATION SERVICE DATE: 02/23/2022 SERVICE TIME: 8:12 PHYSICAL EXAM MUST BE COMPLETED ON ADMISSION PROCEDURE: colonoscopy, possible biposies Procedure Indications: screening for colon cancer The History and Physical (completed in the past 30 days) has been reviewed and the patient has been examined. The contents accurately reflect the patient's condition with the following additions or revisions since the H&P was completed. ASA Class: ASA Class:: Normal healthy patient Examination indicates no changes. AIRWAY: Airway Visualization of Uvula: Yes Mouth opening greater than 2 fingerbreadths: Yes Neck Full Range of Motion: Yes LUNGS: Lungs clear to auscultation CARDIAC: Regular rhythm,Regular rate Provisional Diagnosis/Treatment Plan: colonoscopy, possible biopsies SEDATION GOAL: Moderate This H&P can be found in the Electronic Medical Record. SIGNATURE: Maude Niño MD PATIENT NAME: Vinita Raines DATE: February 23, 2022 TIME: 8:13 AM Source Note - Maude Niño MD - 02/23/2022 8:15 AM EDT HISTORY AND PHYSICAL Vinita Raines 1970 REFERRING PHYSICIAN: Maude Niño MD CHIEF COMPLAINT: No chief complaint on file. HPI: The patient is a 51 year old female presents for screening for colon cancer via colonoscopy The patient denies blood in stools, denies abdominal pain, and denies changes in bowel habits. The patient notes no colon cancer in immediate family. The patient has not had previous colonoscopy. PAST MEDICAL HISTORY Diagnosis Date H/O bee sting allergy treated with oral antihistamines NEGATIVE MEDICAL HISTORY PAST SURGICAL HISTORY Procedure Laterality Date LIG/TRNSXJ FLP TUBE ABDL/VAG APPR UNI/BI Current Outpatient Medications Medication Sig albuterol HFA (PROVENTIL HFA, VENTOLIN HFA) 90 mcg/actuation inhaler Inhale 2 Puffs as instructed every 6 hours as needed for wheezing/shortness of breath. estradiol (ESTRACE) 0.01 % (0.1 mg/gram) vaginal cream Use 0.5 g vaginally two times a week. MULTIVITAMIN ORAL Take by mouth. ALLERGIES: Bees and Seasonal Allergies PERSONAL HISTORY: Social History Tobacco Use Smoking status: Never Smokeless tobacco: Never Vaping Use Vaping Use: Never used Substance Use Topics Alcohol use: No Drug use: No FAMILY HISTORY Problem Relation Age of Onset None Mother Cancer Father PROSTATE Heart Father A Fib None Sister Breast Cancer Other maternal cousin, negative genetic test for inheritable form REVIEW OF SYSTEMS: General - denies fevers HEENT - denies trauma/infections Resp - denies coughing up blood, denies breathing difficulties Cardiac - denies chest pain GI - denies abdominal pain, denies blood in stools, denies vomiting up of blood - denies blood in urine Endocrine - denies diabetes Psych - denies hallucinations Physical examination: Vital signs in chart, reviewed and noted by me General - WD/WN F in no apparent distress, alert and oriented Head - Normocephalic. EOM intact with sclera clear. Mouth with mucus membranes moist. Neck - supple with no jugular venous distention noted. Trachea is midline. Lungs - clear to auscultation. Normal breath sounds. No rales/rhonchi/wheezing noted. Heart - normal heart sounds. No rubs/clicks/murmurs noted. Regular rate. Abdomen - soft and benign. Extremities - no pitting edema noted. Skin - Normal skin integrity. Neurological - non focal Psych - calm and appropriate Impression: screening for colon cancer Discussion/Plan/Recommendations : I have discussed the above with the patient. I have offered colonoscopy, possible biopsies I have explained the procedure to the patient. I have counseled the patient as to the risks of the procedure, including but not limited to: infection, bleeding, injury to any intrabdominal organs such as liver/spleen, perforation of the GI tract, inability to complete the procedure, complications of anesthesia, etc. - the patient understands. The patient wishes to proceed. I have answered all questions to the patient s satisfaction and the patient has no further questions. Maude Nñio MD HISTORY AND PHYSICAL July Raines 1970 REFERRING PHYSICIAN: Maude Niño MD CHIEF COMPLAINT: No chief complaint on file. HPI: The patient is a 51 year old female presents for screening for colon cancer via colonoscopy The patient denies blood in stools, denies abdominal pain, and denies changes in bowel habits. The patient notes no colon cancer in immediate family. The patient has not had previous colonoscopy. PAST MEDICAL HISTORY Diagnosis Date H/O bee sting allergy treated with oral antihistamines NEGATIVE MEDICAL HISTORY PAST SURGICAL HISTORY Procedure Laterality Date LIG/TRNSXJ FLP TUBE ABDL/VAG APPR UNI/BI Current Outpatient Medications Medication Sig albuterol HFA (PROVENTIL HFA, VENTOLIN HFA) 90 mcg/actuation inhaler Inhale 2 Puffs as instructed every 6 hours as needed for wheezing/shortness of breath. estradiol (ESTRACE) 0.01 % (0.1 mg/gram) vaginal cream Use 0.5 g vaginally two times a week. MULTIVITAMIN ORAL Take by mouth. ALLERGIES: Bees and Seasonal Allergies PERSONAL HISTORY: Social History Tobacco Use Smoking status: Never Smokeless tobacco: Never Vaping Use Vaping Use: Never used Substance Use Topics Alcohol use: No Drug use: No FAMILY HISTORY Problem Relation Age of Onset None Mother Cancer Father PROSTATE Heart Father A Fib None Sister Breast Cancer Other maternal cousin, negative genetic test for inheritable form REVIEW OF SYSTEMS: General - denies fevers HEENT - denies trauma/infections Resp - denies coughing up blood, denies breathing difficulties Cardiac - denies chest pain GI - denies abdominal pain, denies blood in stools, denies vomiting up of blood - denies blood in urine Endocrine - denies diabetes Psych - denies hallucinations Physical examination: Vital signs in chart, reviewed and noted by me General - WD/WN F in no apparent distress, alert and oriented Head - Normocephalic. EOM intact with sclera clear. Mouth with mucus membranes moist. Neck - supple with no jugular venous distention noted. Trachea is midline. Lungs - clear to auscultation. Normal breath sounds. No rales/rhonchi/wheezing noted. Heart - normal heart sounds. No rubs/clicks/murmurs noted. Regular rate. Abdomen - soft and benign. Extremities - no pitting edema noted. Skin - Normal skin integrity. Neurological - non focal Psych - calm and appropriate Impression: screening for colon cancer Discussion/Plan/Recommendations : I have discussed the above with the patient. I have offered colonoscopy, possible biopsies I have explained the procedure to the patient. I have counseled the patient as to the risks of the procedure, including but not limited to: infection, bleeding, injury to any intrabdominal organs such as liver/spleen, perforation of the GI tract, inability to complete the procedure, complications of anesthesia, etc. - the patient understands. The patient wishes to proceed. I have answered all questions to the patient s satisfaction and the patient has no further questions. Maude Niño MD documented in this encounter [facility] 01-05-2022 Instructions Maude Niño MD - 01/05/2022 10:45 AM EDT Images from the original note were not included. Bowel Preparation Instructions for: Golytely, Nulytely, Trilyte or Colyte (polyethylene glycol 3350 and electrolytes) IF YOU DO NOT FOLLOW THESE DIRECTIONS, YOUR COLONOSCOPY WILL BE CANCELLED. Giordano Instructions: Your bowel must be empty so that your doctor can clearly view your colon. Follow all of the instructions in this handout EXACTLY as they are written. Do NOT eat any solid food the ENTIRE day before your colonoscopy. Drink only clear liquids. Buy your bowel preparation at least 5 days before your colonoscopy. TRANSPORTATION on the Day of Your Exam A responsible person MUST be present with you at Check In prior to your colonoscopy and REMAIN in the endoscopy area until you are discharged. You are NOT ALLOWED to drive, take a taxi or bus, or leave the Endoscopy Center ALONE. If you do not have a responsible minibus driver (family member or friend) with you to take you home, your exam cannot be done with sedation and will be cancelled. Please bring a list of all of your current medications, including any Over-the Counter medications with you. Medications If you take insulin, diabetic medications or blood thinners such as Coumadin (warfarin), Plavix (clopidogrel), Ticlid (ticlopidine hydrochloride), Agrylin (anagrelide), Xarelto (Rivaroxaban), Pradaxa (Dabigatran), Eliquis (Apixaban), and Effient (Prasugrel). You MUST call the doctors who orders those medicines for instructions on altering the dosage before your colonoscopy. All other medications should be taken the day of the exam with a sip of water including ASPIRIN. Five (5) Days Before Your Colonoscopy Do NOT take medicines that stop diarrhea - such as Imodium, Kaopectate, or Pepto Bismol. Do NOT take fiber supplements - such as Metamucil, Citrucel, or Perdiem. Do NOT take products that contain iron - such as multi-vitamins (the label lists what is in the products). Do NOT take Vitamin E. Buy the prescription bowel preparation solution at your local pharmacy or drugstore pharmacy. 03/2019 Bowel Preparation Instructions for: Golytely, Nulytely, Trilyte or Colyte (polyethylene glycol 3350 and electrolytes) Three (3) Days Before Your Colonoscopy Do NOT eat high-fiber foods - such as popcorn, beans, seeds (flax, sunflower, quinoa), multigrain bread, nuts, salad/vegetables, or fresh and dried fruit. One (1) Day Before Your Colonoscopy Only drink clear liquids the ENTIRE DAY before your colonoscopy. Do NOT eat any solid foods. Drink at least 8 ounces of clear liquids every hour after waking up. The clear liquids you can drink include: Clear Liquid (NO RED LIQUIDS) DO NOT DRINK Gatorade, Pedialyte or Powerade Clear broth or bouillon Coffee or tea (no milk or non-dairy creamer) Carbonated and non-carbonated soft drinks Patrick-Aid or other fruit flavored drinks Strained fruit juices (no pulp) Jell-O, popsicles, hard candy Water Alcohol Milk or non-dairy creamers Noodles or vegetables in soup Juice with pulp Liquid you cannot see through Do not use tobacco/vaping products The bowel preparation solution will be consumed in two parts. Mix the solution the evening before your colonoscopy and refrigerate before drinking. You may add the flavor pack that came with the bowel preparation. Do NOT add ice, sugar or any other flavorings to the solution. Part 1 At 6:00 PM - Evening before your colonoscopy Drink an 8-oz glass of bowel preparation every 10 minutes for a total of 8 glasses. You may continue to drink clear liquids until midnight. Part 2 On the day of your colonoscopy you may drink clear liquids up to (three) 3 hours before your procedure. 4 1/2 hours before your colonoscopy Drink an 8-oz glass of bowel preparation every 10 minutes for a total of 8 glasses. Fifteen (15) minutes later, drink an 8-oz glass of clear liquids every 15 minutes for a total of 2 glasses. You may continue to drink clear liquids up to (three) 3 hours before your exam. 2 03/2019 documented in this encounter [facility] Diagnosis Encounter for gynecological examination (general) (routine) without abnormal findings- Primary Vaginal dryness, menopausal Symptomatic menopausal or female climacteric states Encounter for screening mammogram for breast cancer Dense breast tissue [facility] Diagnosis Urinary frequency- Primary Dysuria documented in this encounter [facility] note* Diagnosis Bronchitis- Primary Bronchitis, not specified as acute or chronic documented in this encounter [facility] note* Diagnosis Encounter for screening mammogram for breast cancer Dense breast tissue documented in this encounter [facility] note* Diagnosis Screening for colon cancer- Primary Special screening for malignant neoplasms, colon documented in this encounter [facility] for referral (narrative)* Outpatient Procedure (Routine) - Authorized Specialty Diagnoses / Procedures Referred By Kp lagunas Referred To Contact [facility] Diagnoses Screening for colon cancer Procedures COLONOSCOPY SCREENING COLONOSCOPY FLX DX W/COLLJ SPEC WHEN Maude Sanders MD [address] [place] [address] [facility] [address] [place] [id number] Referral ID Status Reason Start Date Expiration Date Visits Requested Visits Authorized [id number] Authorized Auto-Generat ed Referral 01/05/2022 01/05/2023 1 1 [facility] for referral (narrative)* Diagnostic Procedure Only (Routine) - Authorized Specialty Diagnoses / Procedures Referred By Kp lagunas Referred To Contact [facility] Diagnoses Encounter for screening mammogram for breast cancer Dense breast tissue Procedures FAY SCREENING W ELLIS SCREENING DIGITAL BREAST TOMOSYNTHESIS BI SCREENING MAMMOGRAPHY BI 2-VIEW BREAST INC Leny Dean APRN.AERONAUTICAL PROJECT ENGINEER [address] [place] [address] [facility] [address] [place] [phone] Referral ID Status Reason Start Date Expiration Date Visits Requested Visits Authorized [id number] Authorized Auto-Generat ed Referral 05/11/2022 06/10/2023 1 1 [facility] for referral (narrative)* Diagnostic Procedure Only (Routine) - Closed Specialty Diagnoses / Procedures Referred By Contac t Referred To Contact [facility] Diagnoses Encounter for screening mammogram for breast cancer Dense breast tissue Procedures FAY SCREENING W ELLIS SCREENING DIGITAL BREAST TOMOSYNTHESIS BI SCREENING MAMMOGRAPHY BI 2-VIEW BREAST INC Leny Dean APRN.CNP [address] [place] [address] [facility] [address] [place] [phone] Referral ID Status Reason Start Date Expiration Date V isits Requested Visits Authorized [id number] Closed Auto-Generate d Referral 05/11/2022 06/10/2023 1 1 T [facility] for referral (narrative)* Outpatient Procedure (Routine) - Closed Specialty Diagnoses / Procedures Referred By Contac t Referred To Contact [facility] Diagnoses Screening for colon cancer Procedures COLONOSCOPY SCREENING COLONOSCOPY FLX DX W/COLLJ SPEC WHEN Maude Sanders MD [address] [place] [address] [facility] [address] [place] [address] Referral ID Status Reason Start Date Expiration Date V isits Requested Visits Authorized [id number] Closed Auto-Generate d Referral 01/05/2022 01/05/2023 1 1 T [facility] for visit Narrative* Diagnostic Procedure Only (Routine) - Closed Specialty Diagnoses / Procedures Referred By Contac t Referred To Contact [facility] Diagnoses Encounter for screening mammogram for breast cancer Dense breast tissue Procedures FAY SCREENING W ELLIS SCREENING DIGITAL BREAST TOMOSYNTHESIS BI SCREENING MAMMOGRAPHY BI 2-VIEW BREAST INC Leny Dean, JUAN CARLOS.AERONAUTICAL PROJECT ENGINEER [address] [place] [address] [facility] [address] [place] [address] Referral ID Status Reason Start Date Expiration Date V isits Requested Visits Authorized [id number] Closed Auto-Generate d Referral 05/11/2022 06/10/2023 1 1 [facility] Outpatient Procedure (Routine) - Closed Specialty Diagnoses / Procedures Referred By Kp lagunas Referred To Contact [facility] Diagnoses Screening for colon cancer Procedures COLONOSCOPY SCREENING COLONOSCOPY FLX DX W/COLLJ SPEC WHEN Maude Sanders MD [address] [place] [address] [facility] [address] [place] [address] Referral ID Status Reason Start Date Expiration Date V isits Requested Visits Authorized [id number] Closed Auto-Generate d Referral 01/05/2022 01/05/2023 1 1 [facility] Summary Purpose Family History No Family History Records Found Advance Directives No Advanced Directives Records Found Medications Administered Section Inactive Administered Medications - up to 3 most recent administrations Medication Order MAR Action Action Date Dose Rate Site diphenhydrAMINE 12.5-50 mg injection (BENADRYL) 12.5-50 mg, INTRAVENOUS, DIRECTED, Starting on Mon02/23/22 at 0900, Until Mon02/23/22 at 1259, DOSING DIRECTED BY PHYSICIAN FOR PROCEDURAL SEDATION ONLY, Intraprocedure Given 02/23/2022 8:24 AM EDT 50 mg fentaNYL 50 mcg/mL 25-100 mcg injection (SUBLIMAZE) 25-100 mcg, INTRAVENOUS, DIRECTED, Starting on Mon02/23/22 at 0900, Until Mon02/23/22 at 1259, DOSING DIRECTED BY PHYSICIAN FOR PROCEDURAL SEDATION ONLY, Intraprocedure Given 02/23/2022 8:30 AM EDT 50 mcg Additional Source Comments Source Comments (unrecognize d section and content) In the event this informatio n is protected by the Federal Confidentiality of Alcohol and Drug Abuse Patient Records regulations: The Federal rules restrict any use of the information to criminally investigate or prosecute any alcohol or drug abuse patient.[facility] the event this information is protected by the Federal Confidentiality of Alcohol and Drug Abuse Patient Records regulations: The Federal rules restrict any use of the information to criminally investigate or prosecute any alcohol or drug abuse patient.[facility] the event this information is protected by the Federal Confidentiality of Alcohol and Drug Abuse Patient Records regulations: The Federal rules restrict any use of the information to criminally investigate or prosecute any alcohol or drug abuse patient.[facility] the event this information is protected by the Federal Confidentiality of Alcohol and Drug Abuse Patient Records regulations: The Federal rules restrict any use of the information to criminally investigate or prosecute any alcohol or drug abuse patient.[facility] the event this information is protected by the Federal Confidentiality of Alcohol and Drug Abuse Patient Records regulations: The Federal rules restrict any use of the information to criminally investigate or prosecute any alcohol or drug abuse patient.[facility] the event this information is protected by the Federal Confidentiality of Alcohol and Drug Abuse Patient Records regulations: The Federal rules restrict any use of the information to criminally investigate or prosecute any alcohol or drug abuse patient.[facility] the event this information is protected by the Federal Confidentiality of Alcohol and Drug Abuse Patient Records regulations: The Federal rules restrict any use of the information to criminally investigate or prosecute any alcohol or drug abuse patient.[facility] the event this information is protected by the Federal Confidentiality of Alcohol and Drug Abuse Patient Records regulations: The Federal rules restrict any use of the information to criminally investigate or prosecute any alcohol or drug abuse patient.[facility] Reason for Visit (unrecogniz ed section and content) Reason Comments Urinary Problem Pt reported burning with urination, x1 day. Reason Comments Results Reason Comments Cough Cough x 10 days INFORMATION SOURCE (unrecogn ized section and content) FOR RECORDS PERTAINING TO PATIENTS WHO ARE OR HAVE BEEN ENROLLED IN A CHEMICAL DEPENDENCY/SUBSTANCEABUSE PROGRAM, SOME INFORMATION MAY BE OMITTED. This clinical summary was aggregated from multiple sources. Caution should be exercised in using it in the provision of clinical care. This summary normalizes information from multiple sources, and as a consequence, information in this document may materially change the coding, format and clinical context of patient data. In addition, data may be omitted in some cases. CLINICAL DECISIONS SHOULD BE BASED ON THE PRIMARY CLINICAL RECORDS. [facility]. provides no warranty or guarantee of the accuracy or completeness of information in this document.
== END 2023-04-24 10:26 | disposition home or self-care (01) ==
LOC: ED 10:23
PROVIDERS: Emergency Provider Emergency Medicine; Visit Provider Emergency Medicine
DX: S10.11XA Abrasion of throat, initial encounter (principal); T18.0XXA Foreign body in mouth, initial encounter
CPT/HCPCS: 99283

== ENCOUNTER 2024-02-18 12:46 | Emergency (ER) | payer BC, SELFPAY ==
[2024-02-18 12:47] VITALS: BP 123/69; PULSE 72; RESP 16; TEMP 36.2; O2SAT 100; BMI 23.2
[2024-02-18] MEDS: Lidocaine 1% (20 ml mdv) 20 ML Vial INFILT (13:02)
--- OUTSIDE RECORDS SUMMARY | 2024-02-18 13:14 | XMS RPT_ITS | CCD ---
Author Organization [facility] Team Providers Care School Psychology Specialist Name Role Phone Unavailable Primary Care Provider Byron Herrera MELT HOUSE SUPERVISOR.Aliyah MARINELLI Primary Care Provider LENY JACOBSEN Referring Unavailable ALIYAH HERRERA Primary Care Unavailable ALIYAH HERRERA Referring Unavailable ALIYAH HERRERA Primary Care Unavailable ALIYAH HERRERA Attending Unavailable ALIYAH HERRERA Primary Care Unavailable Allergies Allergy Classification Reported Allergen(s) Allergy Type Date of Onset Reaction(s) Facility (14 sources) Seasonal allergy; Translations: [SEASONAL ALLERGIES] Allergy to substance 10-18-2012 Itching [facility] (14 sources) Bees; Translations: [BEES] Propensity to adverse reactions 05-24-2006 [facility] Work Phone: Medications Current Medications Medication Drug Class(es) Dates Sig (Normalized) Sig (Original) azithromycin 250 mg oral tablet (1 source) Macrolide Antimicrobial Start: 10-08-2022 End: 10-13-2022 azithromycin (ZITHROMAX Z-GENE) 250 mg tablet Indications: Bronchitis Take 2 tablets day one, then, 1 tablet daily until gone. 6 tablet 0 10/08/2022 10/13/2022 Active Comment on above: Take 2 tablets day o ne, then, 1 tablet daily until gone. estradiol 0.1 mg/ml vaginal cream (14 sources) Estrogen Start: 10-09-2020 End: 05-11-2022 estradiol (ESTRACE) 0.01 % (0.1 mg/gram) vaginal cream Indications: Vaginal dryness, menopausal Use 0.5 g vaginally two times a week. 42.5 g 2 05/11/2022 Active Comment on above: Use 0.5 g vaginally two times a week. MULTIVITAMIN ORAL (13 sources) MULTIVITAMIN ORA L Take by mouth. Active MULTIVITAMIN ORA L Take by mouth. 0 Active Comment on above: Take by mouth. nitrofurantoin, macrocrystals 25 mg / nitrofurantoin, monohydrate 75 mg oral capsule (2 sources) Nitrofuran Antibacterial Start: End: take 1 capsule by mouth twice daily nitrofurantoin monohydrate and macrocrystal (MACROBID) 100 mg capsule Indications: Urinary frequency Take 1 capsule by mouth twice daily for 7 days. 14 capsule 0 06/23/2022 06/30/2022 Active Comment on above: Take 1 capsule by mo [facility] twice daily for 7 days. phenazopyridine hydrochloride 200 mg oral tablet (10 sources) Start: take 1 tablet by mouth three times daily as needed phenazopyridine (PYRIDIUM) 200 mg tablet Indications: Dysuria Take 1 tablet by mouth three times daily as needed. 9 tablet 06/23/2022 Active Comment on above: Take 1 tablet by johann three times daily as needed. polyethylene glycol 3350 312624 mg / potassium chloride 2970 mg / sodium bicarbonate 6740 mg / sodium chloride 5860 mg / sodium sulfate 09279 mg powder for oral solution (1 source) Osmotic Laxative Start: End: peg 3350-Electrolytes (GOLYTELY) 236-22.74-6.74 -5.86 gram suspension Indications: Screening for colon cancer Take 4,000 mL by mouth one time only for 1 dose. Refer to printed prep instructions from your provider. 4000 mL 0 01/05/2022 01/05/2022 Active Comment on above: Take 4,000 mL by johann one time only for 1 dose. Refer to printed prep instructions from your provider. predniSONE 20 mg oral tablet (1 source) Start: End: take 1 tablet by mouth once daily predniSONE (DELTASONE) 20 mg tablet Indications: Bronchitis Take 1 tablet by mouth once daily for 5 days. 5 tablet 0 10/08/2022 10/13/2022 Active Comment on above: Take 1 tablet by johann once daily for 5 days. Completed/Discontinued Medications Medication Drug Class(es) Dates Sig (Normalized) Sig (Original) [id number] 200 actuat albuterol 0.09 mg/actuat metered dose inhaler (3 sources) beta2-Adrenergic Agonist Start: 05-01-2021 End: 05-11-2022 take 2 puff(s) by inhalation every six hours as needed for wheezing albuterol HFA (PROVENTIL HFA, VENTOLIN HFA) 90 mcg/actuation inhaler Inhale 2 Puffs as instructed every 6 hours as needed for wheezing/shortness of breath. 1 Each 0 05/01/2021 05/11/2022 Discontinued Comment on above: Inhale 2 Puffs as in structed every 6 hours as needed for wheezing/shortness of breath. Problems Active Problems Problem Classification Problem Date Documented Da te Episodic/Chronic Chronic obstructive pulmonary disease and bronchiectasis (1 source) Bronchitis; Translations: [Bronchitis, not specified as acute or chronic] Episodic Genitourinary symptoms and ill-defined conditions (2 sources) Increased frequency of urination; Translations: [Frequency of micturition] Episodic Menopausal disorders (2 sources) Vaginal dryness; Translations: [Menopausal and female climacteric states] Chronic Other screening for suspected conditions (not mental disorders or infectious disease) (15 sources) Patient encounter status; Translations: [Encounter for screening for malignant neoplasm of colon] Onset: 09-25-2023 Episodic Past or Other Problems Problem Classification Problem Date Documented Date Episodic/Chronic Immunizations and screening for infectious disease (4 sources) Hepatitis B screening required; Translations: [Encounter for screening for other viral diseases] Onset: 4 09-25-2023 Episodic Nonmalignant breast conditions (14 sources) Mammographic microcalcification of breast; Translations: [Mammographic microcalcification found on diagnostic imaging of breast] Onset: 5 11-08-2014 Episodic Results Test Name Value Interpretation Reference Range Facil ity FAY SCREENING W TOMOon 02-04 FAY SCREENING W ELLIS * * *Final Report* * * DATE OF EXAM: Feb 05 2024 12:46PM WRW 0582 - FAY SCREENING W ELLIS / PROCEDURE REASON: Encounter for screening mammogram for malignant neoplasm of breast * * * * Physician Interpretation * * * * RESULT: [address] [address] [place] [address] HISTORY: Patient is 53 years old and is seen for screening and is asymptomatic in both breasts. The patient has no personal history of cancer. COMPARISON STUDIES: The present examination has been compared to prior imaging studies dated 05/02/2019 (mammogram), 10/27/2020 (mammogram) and 02/03/2023 (mammogram). MAMMOGRAM TECHNIQUE: The study was acquired using full field digital technology and interpreted from soft copy. Digital Breast Tomosynthesis (DBT) images were obtained and used to assist in the interpretation of this examination. Computer-aided detection was utilized by the radiologist in the interpretation of this examination. MAMMOGRAM FINDINGS: The breasts are heterogeneously dense, which may obscure small masses. No suspicious masses, calcifications or other abnormalities are seen in either breast. There are no significant changes from the prior study. IMPRESSION: There is no mammographic evidence of malignancy in either breast. Routine follow-up mammogram in 1 year is recommended. BI-RADS Category 1: Negative RISK: Based on the Tyrer-Cuzick (TC) risk assessment model, this patient has a 21.9% lifetime risk of developing breast cancer, meaning they are at high risk for developing breast cancer. However, this is only an estimate based on available history provided on the patient's questionnaire. Because patients with a lifetime risk of 20% or greater may benefit from additional supplemental screening, we encourage a full breast clinical evaluation and comprehensive breast cancer risk assessment to guide further decision making. For more information regarding the management of high-risk patients, the following is a link to the [facility] care path [email or web address]://ccf.[email or web address]/dotNet/documents/?d xeho=39976. Additionally, a referral to the [facility] is also appropriate. Interpreting Radiologist: Laurie Patricio M.D. Electronically signed on: 02/06/2024 Senior Customer Service Representative: GEOVANY Transcribe Date/Time: Feb 05 2024 12:34P Dictated by: LAURIE PATRICIO MD This examination was interpreted and the report reviewed and electronically signed by: LAURIE PATRICIO MD on Feb 06 2024 4:33PM EST [id number] Normal [facility] 01-18-2024 CNPN Telephone ([facility]) VINITA RAINES ([id number]) 1970 F Date Time Provider Department 01/18/24 LENY JACOBSEN During your visit today, we recorded the following information about you: Elsi Sorto 01/18/2024 9:55 AM Signed Patient is requesting her yearly mammogram. Please review and advise. Elsi Sorto January 18, 2024 9:55 AM Lyla Swartz RN 01/18/2024 10:01 AM Signed Mamm with ELLIS order pending. JUAN Miller Kaitlyn 01/18/2024 5:49 PM Signed Called patient and left a vm Allergies As of Date: 01/18/2024 Noted Allergy Reaction BEES 05/24/2006 SEASONAL ALLERGIES 10/18/2012 9 - Itching Comments: eyes Date Reviewed: 09/25/2023 Reviewed by: Betzaida Meyer MA - Fully Assessed Reason for Visit: Orders [681] Primary Visit Diagnosis:Encounter for screening mammogram for malignant neoplasm of breast [Z12.31] Order(s):FAY SCREENING W ELLIS [[id number]] Order #: [id number] FUTURE Prescriptions as of 01/19/2024 - phenazopyridine (PYRIDIUM) 200 mg tablet Take 1 tablet by mouth three times daily as needed. - estradiol (ESTRACE) 0.01 % (0.1 mg/gram) vaginal cream Use 0.5 g vaginally two times a week. - MULTIVITAMIN ORAL Take by mouth. Problem List As Of Date 01/18/2024 Noted Resolved Mammographic microcalcification found on diagno*11/08/2014 Encounter Status:Closed by ELSI SORTO on 01/19/24 [facility] [place] 09-26-2023 ISISN Telephone (RAEANN) GARYVINITA Diane ([id number]) 1970 F Date Time Provider Department 09/26/23 ALIYAH HERRERA During your visit today, we recorded the following information about you: Aliyah Herrera, JUAN CARLOS.[employer] 09/26/2023 12:07 PM Signed Please let patient know her cholesterol is slightly elevated otherwise her labs are normal. I would encourage low fat, low cholesterol diet. Maria Del Rosario Chowdary RN 09/26/2023 12:11 PM Signed Pt called and is notified of providers results and instructions. Pt voices understanding. Maria Del Rosario Chowdary RN Allergies As of Date: 09/26/2023 Noted Allergy Reaction BEES 05/24/2006 SEASONAL ALLERGIES 10/18/2012 9 - Itching Comments: eyes Date Reviewed: 09/25/2023 Reviewed by: Betzaida Meyer MA - Fully Assessed Reason for Visit: Results [95] Prescriptions as of 09/26/2023 - phenazopyridine (PYRIDIUM) 200 mg tablet Take 1 tablet by mouth three times daily as needed. - estradiol (ESTRACE) 0.01 % (0.1 mg/gram) vaginal cream Use 0.5 g vaginally two times a week. - MULTIVITAMIN ORAL Take by mouth. Problem List As Of Date 09/26/2023 Noted Resolved Mammographic microcalcification found on diagno*11/08/2014 Encounter Status:Closed by MARIA DEL ROSARIO CHOWDARY on 09/26/23 Normal [facility] CBC W Auto Differential pane l (Bld)on 09-25-2023 Basophils (Bld) [#/Vol] 0.05 10*3/uL [facility] Basophils/100 WBC (Bld) 0.5 % [facility] Differential cell count method Nom (Bld) Auto [facility] Eosinophils (Bld) [#/Vol] 0.19 10*3/uL [facility] Eosinophils/100 WBC (Bld) 2.1 % [facility] Erythrocyte distribution width (RBC) [Ratio] 11.9 % 11.5 - 15.0 % [facility] Hematocrit (Bld) [Volume fraction] 42.4 % 36.0 - 46.0 % [facility] Hemoglobin (Bld) [Mass/Vol] 13.9 g/dL 11.5 - 15.5 g/dL [facility] Immature granulocytes (Bld) [#/Vol] 0.03 10*3/uL [facility] Immature granulocytes/100 WBC (Bld) 0.3 % [facility] Lymphocytes (Bld) [#/Vol] 2.00 10*3/uL [facility] Lymphocytes/100 WBC (Bld) 21.9 % [facility] MCH (RBC) [Entitic mass] 29.4 pg 26.0 - 34.0 pg [facility] MCHC (RBC) [Mass/Vol] 32.8 g/dL 30.5 - 36.0 g/dL [facility] MCV (RBC) [Entitic vol] 89.6 fL 80.0 - 100.0 fL [facility] Monocytes (Bld) [#/Vol] 0.42 10*3/uL [facility] Monocytes/100 WBC (Bld) 4.6 % [facility] Neutrophils (Bld) [#/Vol] 6.45 10*3/uL [facility] Neutrophils/100 WBC (Bld) 70.6 % [facility] Nucleated RBC (Bld) [#/Vol] [facility] Nucleated RBC/100 WBC (Bld) [Ratio] 0.0 % /100 WBC [facility] Platelet mean volume (Bld) [Entitic vol] 9.7 fL 9.0 - 12.7 fL [facility] Platelets (Bld) [#/Vol] 365 10*3/uL [facility] RBC (Bld) [#/Vol] 4.73 10*6/uL 3.90 - 5.2 0 m/uL [facility] WBC (Bld) [#/Vol] 9.14 10*3/uL [facility] Basophils (Bld) [#/Vol] 0.05 10*3/uL Normal <0.11 [facility] Comment on above: Order Comment: Speci men Type: BLOOD SPECIMEN Ordering Facility: [facility] Address: [address] [place] [address] Performed By: #### 5 7021-8 #### [facility] CLIA [id number] [address] [place] [address] [place] Basophils/100 WBC (Bld) 0.5 % Normal [facility] Comment on above: Order Comment: Speci men Type: BLOOD SPECIMEN Ordering Facility: [facility] Address: [address] [place] [address] Performed By: #### 5 7021-8 #### [facility] CLIA [id number] [address] [place] [address] [place] Differential cell count method Nom (Bld) Auto Normal [facility] Comment on above: Order Comment: Speci men Type: BLOOD SPECIMEN Ordering Facility: [facility] Address: [address] [place] [address] Performed By: #### 5 7021-8 #### [facility] CLIA [id number] [address] [place] [address] [place] Eosinophils (Bld) [#/Vol] 0.19 10*3/uL Normal <0.46 [facility] Comment on above: Order Comment: Speci men Type: BLOOD SPECIMEN Ordering Facility: [facility] Address: [address] [place] [address] Performed By: #### 5 7021-8 #### [facility] CLIA [id number] [address] [place] [address] [place] Eosinophils/100 WBC (Bld) 2.1 % Normal [facility] Comment on above: Order Comment: Speci men Type: BLOOD SPECIMEN Ordering Facility: [facility] Address: [address] [place] [address] Performed By: #### 5 7021-8 #### [facility] CLIA [id number] [address] [place] [address] [place] Erythrocyte distribution width (RBC) [Ratio] 11.9 % Normal 11.5-15.0 [facility] Comment on above: Order Comment: Speci men Type: BLOOD SPECIMEN Ordering Facility: [facility] Address: [address] [place] [address] Performed By: #### 5 7021-8 #### [facility] CLIA [id number] [address] [place] [address] [place] Hematocrit (Bld) [Volume fraction] 42.4 % Normal 36.0-46.0 [facility] Comment on above: Order Comment: Speci men Type: BLOOD SPECIMEN Ordering Facility: [facility] Address: [address] [place] [address] Performed By: #### 5 7021-8 #### [facility] CLIA [id number] [address] [place] [address] [place] Hemoglobin (Bld) [Mass/Vol] 13.9 g/dL Normal 11.5-15.5 [facility] Comment on above: Order Comment: Speci men Type: BLOOD SPECIMEN Ordering Facility: [facility] Address: [address] [place] [address] Performed By: #### 5 7021-8 #### [facility] CLIA [id number] [address] [place] [address] [place] Immature granulocytes (Bld) [#/Vol] 0.03 10*3/uL Normal <0.10 [facility] Comment on above: Order Comment: Speci men Type: BLOOD SPECIMEN Ordering Facility: [facility] Address: [address] [place] [address] Performed By: #### 5 7021-8 #### [facility] CLIA [id number] [address] [place] [address] [place] Immature granulocytes/100 WBC (Bld) 0.3 % Normal [facility] Comment on above: Order Comment: Speci men Type: BLOOD SPECIMEN Ordering Facility: [facility] Address: [address] [place] [address] Performed By: #### 5 7021-8 #### [facility] CLIA [id number] [address] [place] [address] [place] Lymphocytes (Bld) [#/Vol] 2.00 10*3/uL Normal 1.00-4.00 [facility] Comment on above: Order Comment: Speci men Type: BLOOD SPECIMEN Ordering Facility: [facility] Address: [address] [place] [address] Performed By: #### 5 7021-8 #### [facility] CLIA [id number] [address] [place] [address] [place] Lymphocytes/100 WBC (Bld) 21.9 % Normal [facility] Comment on above: Order Comment: Speci men Type: BLOOD SPECIMEN Ordering Facility: [facility] Address: [address] [place] [address] Performed By: #### 5 7021-8 #### [facility] CLIA [id number] [address] [place] [address] [place] MCH (RBC) [Entitic mass] 29.4 pg Normal 26.0-34.0 [facility] Comment on above: Order Comment: Speci men Type: BLOOD SPECIMEN Ordering Facility: [facility] Address: [address] [place] [address] Performed By: #### 5 7021-8 #### [facility] CLIA [id number] [address] [place] [address] [place] MCHC (RBC) [Mass/Vol] 32.8 g/dL Normal 30.5-36.0 [facility] Comment on above: Order Comment: Speci men Type: BLOOD SPECIMEN Ordering Facility: [facility] Address: [address] [place] [address] Performed By: #### 5 7021-8 #### [facility] CLIA [id number] [address] [place] [address] [place] MCV (RBC) [Entitic vol] 89.6 fL Normal 80.0-100.0 [facility] Comment on above: Order Comment: Speci men Type: BLOOD SPECIMEN Ordering Facility: [facility] Address: [address] [place] [address] Performed By: #### 5 7021-8 #### [facility] CLIA [id number] [address] [place] [address] [place] Monocytes (Bld) [#/Vol] 0.42 10*3/uL Normal <0.87 [facility] Comment on above: Order Comment: Speci men Type: BLOOD SPECIMEN Ordering Facility: [facility] Address: [address] [place] [address] Performed By: #### 5 7021-8 #### [facility] CLIA [id number] [address] [place] [address] [place] Monocytes/100 WBC (Bld) 4.6 % Normal [facility] Comment on above: Order Comment: Speci men Type: BLOOD SPECIMEN Ordering Facility: [facility] Address: [address] [place] [address] Performed By: #### 5 7021-8 #### [facility] CLIA [id number] [address] [place] [address] [place] Neutrophils (Bld) [#/Vol] 6.45 10*3/uL Normal 1.45-7.50 [facility] Comment on above: Order Comment: Speci men Type: BLOOD SPECIMEN Ordering Facility: [facility] Address: [address] [place] [address] Performed By: #### 5 7021-8 #### [facility] CLIA [id number] [address] [place] [address] [place] Neutrophils/100 WBC (Bld) 70.6 % Normal [facility] Comment on above: Order Comment: Speci men Type: BLOOD SPECIMEN Ordering Facility: [facility] Address: [address] [place] [address] Performed By: #### 5 7021-8 #### [facility] CLIA [id number] [address] [place] [address] [place] Nucleated RBC (Bld) [#/Vol] 10*3/uL Normal <0.01 [facility] Comment on above: Order Comment: Speci men Type: BLOOD SPECIMEN Ordering Facility: [facility] Address: [address] [place] [address] Performed By: #### 5 7021-8 #### [facility] CLIA [id number] [address] [place] [address] [place] Nucleated RBC/100 WBC (Bld) [Ratio] 0.0 /100 WBC Normal [facility] Comment on above: Order Comment: Speci men Type: BLOOD SPECIMEN Ordering Facility: [facility] Address: [address] [place] [address] Performed By: #### 5 7021-8 #### [facility] CLIA [id number] [address] [place] [address] [place] Platelet mean volume (Bld) [Entitic vol] 9.7 fL Normal 9.0-12.7 [facility] Comment on above: Order Comment: Speci men Type: BLOOD SPECIMEN Ordering Facility: [facility] Address: [address] [place] [address] Performed By: #### 5 7021-8 #### [facility] CLIA [id number] [address] [place] [address] [place] Platelets (Bld) [#/Vol] 365 10*3/uL Normal 150-400 [facility] Comment on above: Order Comment: Speci men Type: BLOOD SPECIMEN Ordering Facility: [facility] Address: [address] [place] [address] Performed By: #### 5 7021-8 #### [facility] CLIA [id number] [address] [place] [address] [place] RBC (Bld) [#/Vol] 4.73 10*6/uL Normal 3.90-5.20 [facility] Comment on above: Order Comment: Speci men Type: BLOOD SPECIMEN Ordering Facility: [facility] Address: [address] [place] [address] Performed By: #### 5 7021-8 #### [facility] CLIA [id number] [address] [place] [address] [place] WBC (Bld) [#/Vol] 9.14 10*3/uL Normal 3.70-11.00 [facility] Comment on above: Order Comment: Speci men Type: BLOOD SPECIMEN Ordering Facility: [facility] Address: [address] [place] [address] Performed By: #### 5 7021-8 #### [facility] CLIA [id number] [address] [place] [address] [place] CNOVon 09-25-2023 CNOV Office Visit (FAMPWS ) GARYJuly ([id number]) 1970 F Date Time Provider Department 09/25/23 2:00 PM ALIYAH HERRERA FAMPWS During your visit today, we recorded the following information about you: Pulse Respiration Blood pressure Weight 69/minute 14/minute 115/75 54.9 kg Aliyah Herrera APRN.[facility] 09/25/2023 2:29 PM Signed Chief Complaint Patient presents with: [facility] Vinita Raines is a 53 year old female who presents here today for Above Complaints.. [facility] Past [facility] history, appointments, medications, allergies reviewed. Previous Medical History PAST MEDICAL HISTORY Diagnosis Date H/O bee sting allergy treated with oral antihistamines Previous Surgical History PAST SURGICAL HISTORY Procedure Laterality Date COLONOSCOPY 02/23/2022 repeat in 10 years LIG/TRNSXJ FLP TUBE ABDL/VAG APPR UNI/BI TONSILLECTOMY HX Family History FAMILY HISTORY Problem Relation Age of Onset No Known Problems Mother Cancer Father PROSTATE Heart Father A Fib No Known Problems Sister No Known Problems Sister Breast Cancer Maternal Grandmother Diabetes Maternal Grandfather Stroke Paternal Grandfather No Known Problems Daughter No Known Problems Son Breast Cancer Other maternal cousin, negative genetic test for inheritable form Patient Allergies ALLERGIES Allergen Reactions Bees Seasonal Allergies Itching eyes Current Medications Current Outpatient Medications on File Prior to Visit Medication Sig estradiol (ESTRACE) 0.01 % (0.1 mg/gram) vaginal cream Use 0.5 g vaginally two times a week. MULTIVITAMIN ORAL Take by mouth. phenazopyridine (PYRIDIUM) 200 mg tablet Take 1 tablet by mouth three times daily as needed. (Patient not taking: Reported on 09/25/2023) No current facility-administered medications on file prior to visit. Social History Social History Tobacco Use Smoking status: Never Smokeless tobacco: Never Vaping Use Vaping Use: Never used Substance Use Topics Alcohol use: Yes Comment: occasional Drug use: No Review of Symptoms REVIEW OF SYSTEMS GENERAL: No weight loss, malaise or fevers HEENT: No changes in hearing or vision, no nose bleeds or other nasal problems NECK: Negative for lumps, goiter, pain and significant neck swelling RESPIRATORY: Negative for cough, hemoptysis, wheezing, COPD, dyspnea or shortness of breath CARDIOVASCULAR: Negative for chest pain, leg swelling, hypertension, CHF or palpitations GI: No nausea, vomiting, or diarrhea : No history of dysuria, frequency or incontinence PRIME BROKER: Negative for abnormal vaginal bleeding, abnormal vaginal discharge MUSCULOSKELETAL: Negative for joint pain or swelling, back pain or muscle pain SKIN: Negative for lesions, rash, and itching PSYCH: Negative for sleep disturbance, mood disorder and recent psychosocial stressors HEMATOLOGY/LYMPHOLOGY: Negative for prolonged bleeding, bruising easily or swollen nodes ENDOCRINE: Negative for cold or heat intolerance, polyuria, polydipsia and goiter NEURO: No history of headaches, syncope, paralysis, seizures or tremors EXAM: BP 115/75 Pulse 69 Resp 14 Wt 54.9 kg (121 lb) LMP 09/24/2018 BMI 22.31 kg/m? General Appearance: Well appearing, alert, in no acute distress, well-hydrated, well nourished.. Skin: Skin color, texture, turgor normal, no suspicious rashes or lesions. Lungs: Lungs clear to auscultation. No wheezing, rhonchi, rales.. Heart: RRR without murmur, gallop, or rubs. No ectopy. Abdomen: Normal abdominal exam, Abdomen soft, non-tender. Bowel sounds normal. No masses, organomegaly. Musculoskeletal: No joint swelling, deformity, or tenderness. Peripheral Pulses: Normal. Neurologic: Gait normal. Reflexes normal and symmetric. Sensation grossly intact.. Health Maintenance List Hepatitis C Screening Never done HIV Screening Never done Hepatitis B Vaccine(1 of 3 - 19+ 3-dose series) Never done Lipid Screening Never done Diabetes Screening Never done DTaP,Tdap,Td Vaccine(2 - Td or Tdap) due on 07/31/2019 Shingrix Vaccine(2 of 2) due on 05/29/2022 Covid-19 Vaccine( season) due on 12/23/2022 Behavioral Health Screening Never done Mammogram Screening due on 02/04/2024 Influenza Vaccine(Season Ended) due on 12/24/2023 Pap Testing due on 10/09/2025 HPV Testing due on 10/09/2025 Colorectal Cancer Screening due on 02/24/2032 ASSESSMENT/PLAN: 1. Encounter for lipid screening for cardiovascular disease - ICD9: V77.91, V81.2, ICD10: Z13.220, Z13.6 (primary diagnosis) - LIPID PANEL, NONFASTING 2. Screening for diabetes mellitus - ICD9: V77.1, ICD10: Z13.1 - HEMOGLOBIN A1C 3. Wellness examination - ICD9: V70.0, ICD10: Z00.00 - Counseled on healthy diet and regular exercise - Discussed need and benefit for weight loss. BMI 22.31 kg/(m2) - CO (more content not included)... Normal [facility] Comprehensive metabolic 2000 panelon 09-25-2023 Albumin [Mass/Vol] 4.6 g/dL Normal 3.9-4.9 [facility] Comment on above: Order Comment: Speci men Type: BLOOD SPECIMEN Ordering Facility: [facility] Address: [address] [place] [address] Performed By: #### L IPNF, 40521-6 #### [facility] CLIA [id number] [address] [place] [address] [place] ALP [Catalytic activity/Vol] 76 U/L Normal 34-123 [facility] Comment on above: Order Comment: Speci men Type: BLOOD SPECIMEN Ordering Facility: [facility] Address: [address] [place] [address] Performed By: #### L IPNF, 84112-2 #### [facility] CLIA [id number] [address] [place] [address] [place] ALT [Catalytic activity/Vol] 15 U/L Normal 7-38 [facility] Comment on above: Order Comment: Speci men Type: BLOOD SPECIMEN Ordering Facility: [facility] Address: [address] [place] [address] Performed By: #### L IPNF, 51476-5 #### [facility] CLIA [id number] [address] [place] [address] [place] Anion gap [Moles/Vol] 12 mmol/L Normal 9-18 [facility] Comment on above: Order Comment: Speci men Type: BLOOD SPECIMEN Ordering Facility: [facility] Address: [address] [place] [address] Performed By: #### L IPNF, 78649-2 #### [facility] CLIA [id number] [address] [place] [address] [place] AST [Catalytic activity/Vol] 20 U/L Normal 13-35 [facility] Comment on above: Order Comment: Speci men Type: BLOOD SPECIMEN Ordering Facility: [facility] Address: [address] [place] [address] Performed By: #### L IPNF, 20510-9 #### [facility] CLIA [id number] [address] [place] [address] [place] Bilirubin [Mass/Vol] 0.3 mg/dL Normal 0.2-1.3 [facility] Comment on above: Order Comment: Speci men Type: BLOOD SPECIMEN Ordering Facility: [facility] Address: [address] [place] [address] Performed By: #### L IPNF, 05046-5 #### [facility] CLIA [id number] [address] [place] [address] [place] Calcium [Mass/Vol] 9.7 mg/dL Normal 8.5-10.2 [facility] Comment on above: Order Comment: Speci men Type: BLOOD SPECIMEN Ordering Facility: [facility] Address: [address] [place] [address] Performed By: #### L IPNF, 27337-6 #### [facility] CLIA [id number] [address] [place] [address] [place] Chloride [Moles/Vol] 101 mmol/L Normal 97-105 [facility] Comment on above: Order Comment: Speci men Type: BLOOD SPECIMEN Ordering Facility: [facility] Address: [address] [place] [address] Performed By: #### L IPNF, 84370-5 #### [facility] CLIA [id number] [address] [place] [address] [place] CO2 [Moles/Vol] 26 mmol/L Normal 22-30 [facility] Comment on above: Order Comment: Speci men Type: BLOOD SPECIMEN Ordering Facility: [facility] Address: [address] [place] [address] Performed By: #### L IPNF, 69917-3 #### [facility] CLIA [id number] [address] [place] [address] [place] Creatinine [Mass/Vol] 0.71 mg/dL Normal 0.58-0.96 [facility] Comment on above: Order Comment: Speci men Type: BLOOD SPECIMEN Ordering Facility: [facility] Address: [address] [place], [place] [id number] Performed By: #### L GERRY, 11562-2 #### [facility] CLIA [id number] [address] [place] [address] [place] Creatinine and Glomerular filtration rate.predicted panel (S/P/Bld) 101 mL/min/1.73m??? Normal >=60 [facility] Comment on above: Order Comment: Mejia eckert Type: BLOOD SPECIMEN Ordering Facility: [facility] Address: [address] [place] [address] Result Comment: Bessie mated Glomerular Filtration Rate (eGFR) is calculated using the 2020 CKD-EPI creatinine equation. This equation utilizes serum creatinine, sex, and age as parameters. The creatinine assay has traceable calibration to isotope dilution-mass spectrometry. Refer to KDIGO guidelines for clinical interpretation. In patients with unstable renal function, e.g. those with acute kidney injury, the eGFR may not accurately reflect actual GFR. Performed By: #### L GERRY, 91421-9 #### [facility] CLIA [id number] [address] [place] [address] [place] Glucose [Mass/Vol] 85 mg/dL Normal 74-99 [facility] Comment on above: Order Comment: Mejia eckert Type: BLOOD SPECIMEN Ordering Facility: [facility] Address: [address] [place] [address] Result Comment: The [place] Diabetes Association (ADA) provides guidance for cutoff values for fasting glucose and random glucose. The ADA defines fasting as no caloric intake for at least 8 hours. Fasting plasma glucose results between 100 to 125 mg/dL indicate increased risk for diabetes (prediabetes). Fasting plasma glucose results greater than or equal to 126 mg/dL meet the criteria for diagnosis of diabetes. In the absence of unequivocal hyperglycemia, results should be confirmed by repeat testing. In a patient with classic symptoms of hyperglycemia or hyperglycemic crisis, random plasma glucose results greater than or equal to 200 mg/dL meet the criteria for diagnosis of diabetes. Reference: Standards of Medical Care in Diabetes 2016, [place] Diabetes Association. Diabetes Care. 2016.39(Suppl 1). Performed By: #### L GERRY, 25442-1 #### [facility] CLIA [id number] [address] [place] [address] [place] Potassium [Moles/Vol] 4.2 mmol/L Normal 3.7-5.1 [facility] Comment on above: Order Comment: Speci men Type: BLOOD SPECIMEN Ordering Facility: [facility] Address: [address] [place] [address] Performed By: #### L IPNF, 83322-2 #### [facility] CLIA [id number] [address] [place] [address] [place] Protein [Mass/Vol] 7.6 g/dL Normal 6.3-8.0 [facility] Comment on above: Order Comment: Speci men Type: BLOOD SPECIMEN Ordering Facility: [facility] Address: [address] [place] [address] Performed By: #### L IPNF, 07593-3 #### [facility] IA [id number] [address] [place] [address] [place] Sodium [Moles/Vol] 139 mmol/L Normal 136-144 [facility] Comment on above: Order Comment: Speci men Type: BLOOD SPECIMEN Ordering Facility: [facility] Address: [address] [place] [address] Performed By: #### L IPNF, 61727-0 #### [facility] CLIA [id number] [address] [place] [address] [place] Urea nitrogen [Mass/Vol] 16 mg/dL Normal 7-21 [facility] Comment on above: Order Comment: Speci men Type: BLOOD SPECIMEN Ordering Facility: [facility] Address: [address] [place] [address] Performed By: #### L IPNF, 83617-9 #### [facility] CLIA [id number] [address] [place] [address] [place] HCV Ab Ser Qlon 09-25-2023 HCV Ab Ql (S) Negative Normal Negative [facility] Comment on above: Order Comment: Speci men Type: BLOOD SPECIMENOrdering Facility: [facility] Address: [address] [place] [address] Result Comment: The result suggests no evidence of active infection with Hepatitis C virus. Should recent infection be suspected, repeat testing may be considered 4-6 weeks after this draw. Performed By: #### 1 6128-1 ####[facility] [id number] [place] [address] [place] HIV 1+2 Ab IA Qlon 4 HIV 1 and 2 Ab IA.rapid Nom (S/P/Bld) Normal [facility] Comment on above: Order Comment: Speci men Type: BLOOD SPECIMEN Ordering Facility: [facility] Address: [address] [place] [address] Result Comment: Test not indicated. Performed By: #### 3 1201-7 #### [facility] CLIA [id number] [address] [place] [address] [place] HIV 1+2 Ab+HIV1 p24 Ag IA Ql Non-Reactive Normal Nonreactive [facility] Comment on above: Order Comment: Speci men Type: BLOOD SPECIMEN Ordering Facility: [facility] Address: [address] [place] [address] Performed By: #### 3 1201-7 #### [facility] CLIA [id number] [address] [place] [address] [place] HIV immunoassay testing algorithm interpretation (S/P/Bld) [Interp] Normal [facility] Comment on above: Order Comment: Speci men Type: BLOOD SPECIMEN Ordering Facility: [facility] Address: [address] [place] [address] Result Comment: No e vidence of HIV-1 or HIV-2 infection. Should recent infection be suspected, repeat testing may be considered 2-3 weeks after this draw. [place] Rev. Code 3701.243(E): This information has been disclosed to you from confidential records protected from disclosure by state law. ???You shall make no further disclosure of this information without the specific, written, and informed release of the individual to whom it pertains or as otherwise permitted by state law. A general authorization for the release of medical or other information is not sufficient for the purpose of the release of HIV test results or diagnoses. Performed By: #### 3 1201-7 #### [facility] CLIA [id number] [address] [place] [address] [place] HbA1c (Bld)on 09-25-2023 Average glucose Estimated from glycated hemoglobin (Bld) [Mass/Vol] 105 mg/dL [facility] Comment on above: eAG: (Estimated aver age glucose) is a calculated value from HgbA1c and is factory representative of the average blood glucose level in the last 2-3 month period. HbA1c (Bld) [Mass fraction] 5.3 % 4.3 - 5.6 % [facility] Comment on above: [place] Diabetes As sociation guidelines indicate that patients with HgbA1c in the range 5.7-6.4% are at increased risk for development of diabetes, and intervention by lifestyle modification may be beneficial. HgbA1c greater or equal to 6.5% is considered diagnostic of diabetes. [facility] Average glucose Estimated from glycated hemoglobin (Bld) [Mass/Vol] 105 mg/dL Normal [facility] Comment on above: Order Comment: Speci men Type: BLOOD SPECIMENOrdering Facility: [facility] Address: [address] [place] [address] Result Comment: eAG: (Estimated average glucose) is a calculated value from HgbA1c and is factory representative of the average blood glucose level in the last 2-3 month period. Performed By: #### 5 5454-3 ####[facility] [id number] [address] [place] HbA1c (Bld) [Mass fraction] 5.3 % Normal 4.3-5.6 [facility] Comment on above: Order Comment: Speci men Type: BLOOD SPECIMENOrdering Facility: [facility] Address: [address] [place] [address] Result Comment: [place] Diabetes Association guidelines indicate that patients with HgbA1c in the range 5.7-6.4% are at increased risk for development of diabetes, and intervention by lifestyle modification may be beneficial. HgbA1c greater or equal to 6.5% is considered diagnostic of diabetes. Performed By: #### 5 5454-3 ####[facility] [id number] [address] [place] LIPID PANEL, NONFASTINGon Cholesterol [Mass/Vol] 212 mg/dL High <200 [facility] Comment on above: Order Comment: Mejia eckert Type: BLOOD SPECIMEN Ordering Facility: [facility] Address: [address] [place] [address] Result Comment: <200 mg/dL, Desirable 200-239 mg/dL, Borderline high >239 mg/dL, High Performed By: #### L IPNF, 40565-7 #### [facility] CLIA [id number] [address] [place] [address] [place] [facility] HDL CHOLESTEROL, NF 65 mg/dL Normal >39 [facility] Comment on above: Order Comment: Mejia eckert Type: BLOOD SPECIMEN Ordering Facility: [facility] Address: [address] [place] [address] Result Comment: 40-5 9 mg/dL, Acceptable >59 mg/dL, High: Negative risk factor for coronary heart disease <40 mg/dL, Low: Positive risk factor for coronary heart disease Performed By: #### L IPNF, 99837-0 #### [facility] CLIA [id number] [address] [place] [address] [place] LDL CHOLESTEROL, NF 123 mg/dL High <100 [facility] Comment on above: Order Comment: Mejia eckert Type: BLOOD SPECIMEN Ordering Facility: [facility] Address: [address] [place] [address] Result Comment: <100 mg/dL, Optimal 100-129 mg/dL, Near optimal/above optimal 130-159 mg/dL, Borderline high 160-189 mg/dL, High >189 mg/dL, Very high Secondary prevention optimal LDL Cholesterol levels are recommended to be < 70 mg/dL Performed By: #### L GERRY, 35275-9 #### [facility] CLIA [id number] [address] [place] [address] [place] LDL/HDL RATIO, NF 1.89 mg/dL Normal <2.54 [facility] Comment on above: Order Comment: Mejia eckert Type: BLOOD SPECIMEN Ordering Facility: [facility] Address: [address] [place] [address] Result Comment: Refe rence: 1. National Cholesterol Education Program ATP III Guideline At-A-Glance Quick Desk Reference: National Heart, Lung, and Blood [place]. National Institutes of Health. 2001: NIH Publication No. 01-3305. 2. An International Atherosclerosis Society position paper: global recommendations for the management of dyslipidemia: executive summary, Atherosclerosis. 2014: 232(2):410-413. Performed By: #### L GERRY, 89362-2 #### [facility] CLIA [id number] [address] [place] [address] [place] NON HDL CHOL, NF 147 mg/dL High <130 [facility] Comment on above: Order Comment: Mejia eckert Type: BLOOD SPECIMEN Ordering Facility: [facility] Address: [address] [place] [address] Result Comment: <130 mg/dL, Optimal 130-159 mg/dL, Near optimal/above optimal 160-189 mg/dL, Borderline high 190-219 mg/dL, High >219 mg/dL, Very high Secondary prevention optimal non HDL Cholesterol levels are recommended to be <100 mg/dL Performed By: #### L IPSABINE, 41225-9 #### [facility] CLIA [id number] [address] [place] [address] [place] T CHOL/HDL RATIO NF 3.26 mg/dL Normal <5.10 [facility] Comment on above: Order Comment: Mejia eckert Type: BLOOD SPECIMEN Ordering Facility: [facility] Address: [address] [place] [address] Performed By: #### L IPNF, 19242-8 #### [facility] CLIA [id number] [address] [place] [address] [place] TRIGLYCERIDES, NF 121 mg/dL Normal <150 [facility] Comment on above: Order Comment: Speci men Type: BLOOD SPECIMEN Ordering Facility: [facility] Address: [address] [place] [address] Result Comment: <150 mg/dL, Normal 150-199 mg/dL, Borderline high 200-499 mg/dL, High >499 mg/dL, Very high Performed By: #### L IPSABINE, 64329-2 #### [facility] CLIA [id number] [address] [place] [address] [place] VLDL CHOLESTEROL, NF 24 mg/dL Normal <30 [facility] Comment on above: Order Comment: Speci men Type: BLOOD SPECIMEN Ordering Facility: [facility] Address: [address] [place] [address] Performed By: #### L IPSABINE, 90021-9 #### [facility] CLIA [id number] [address] [place] [address] [place] FAY SCREENING W TOMOon 02-03 [facility] UA DIP, URINE (POC)on 2022 BILIRUBIN UA (POCT) Negative Negative [facility] CLARITY UA (POCT) Clear [facility] COLOR UA (POCT) Yellow [facility] GLUCOSE UA (POCT) Negative Negative mg/dL [facility] HEMOGLOBIN/BLOOD UA (POCT) Large Abnormal Negative [facility] KETONE UA (POCT) Negative Negative mg/dL [facility] LEUKOCYTES UA (POCT) Small Abnormal Negative [facility] NITRITE UA (POCT) Negative Negative [facility] PH UA (POCT) 6.5 4.5 - 8.0 [facility] Protein Ql (U) Trace Abnormal Negative mg/dL [facility] SPECIFIC GRAVITY UA (POCT) <=1.005 Abnormal 1.005 - 1.030 [facility] UROBILINOGEN UA (POCT) 0.2 E.U./dL Normal E.U./dL [facility] COLONOSCOPY SCREENINGon 11-0 [facility] Vital Signs Date Time Vital Sign Value Performing Clinician Shauna roth 09-25-2023 14:00-0400 Body mass index (BMI) [Ratio] 22.31 kg/m2 Aliyah Herrera APRN.[employer] Work Phone: [facility] 09-25-2023 14:00-0400 Body weight 54.88 kg Aliyah Herrera APRN.[employer] Work Phone: [facility] 09-25-2023 14:00-0400 Diastolic blood pressure 75 mm[Hg] Aliyah Herrera [employer]PER[employer] Work Phone: [facility] 09-25-2023 14:00-0400 Heart rate 69 /min Aliyah Herrera [employer] SUPERVISOR.[employer] Work Phone: [facility] 09-25-2023 14:00-0400 Respiratory rate 14 /min Aliyah Herrera [employer] SUPERVISOR.[employer] Work Phone: [facility] 09-25-2023 14:00-0400 Systolic blood pressure 115 mm[Hg] Aliyah Herrera [employer] SUPERVISOR.[employer] Work Phone: [facility] 10-08-2022 15:03-0400 Body temperature 97.81 [degF] Carlene Rosario [employer] SUPERVISOR.[employer] Work Phone: [facility] 10-08-2022 15:03-0400 Body weight 55.52 kg Carlene Rosario [employer] SUPERVISOR.[employer] Work Phone: [facility] 10-08-2022 15:03-0400 Diastolic blood pressure 78 mm[Hg] Carlene Rosario [employer] SUPERVISOR.[employer] Work Phone: [facility] 10-08-2022 15:03-0400 Heart rate 69 /min Carlene Rosario [employer] SUPERVISOR.[employer] Work Phone: [facility] 10-08-2022 15:03-0400 Respiratory rate 16 /min Carlene Rosario [employer] SUPERVISOR.[employer] Work Phone: [facility] 10-08-2022 15:03-0400 SaO2% (BldA) [Mass fraction] 97 % Carlene Coronelhof [employer] SUPERVISOR.[employer] Work Phone: [facility] 10-08-2022 15:03-0400 Systolic blood pressure 122 mm[Hg] Carlene Coronelhof [employer] SUPERVISOR.[employer] Work Phone: [facility] 06-23-2022 18:23-0500 Body temperature 98.01 [degF] Monica Praisler-Wood [employer] SUPERVISOR.[employer] Work Phone: [facility] 06-23-2022 18:23-0500 Diastolic blood pressure 60 mm[Hg] Monica Praisler-Wood [employer] SUPERVISOR.[employer] Work Phone: [facility] 06-23-2022 18:23-0500 Heart rate 69 /min Monica Praisler-Wood [employer] SUPERVISOR.[employer] Work Phone: [facility] 06-23-2022 18:23-0500 Respiratory rate 16 /min Monica Praisler-Wood [employer] SUPERVISOR.[employer] Work Phone: [facility] 06-23-2022 18:23-0500 SaO2% (BldA) [Mass fraction] 100 % Monica Praisler-Wood [employer] SUPERVISOR.[employer] Work Phone: [facility] 06-23-2022 18:23-0500 Systolic blood pressure 110 mm[Hg] Monica Praisler-Wood [employer] SUPERVISOR.[employer] Work Phone: [facility] 05-11-2022 12:57-0500 Body height 156.8 cm Leny Jacobsen [employer] SUPERVISOR.[employer] Work Phone: [facility] 05-11-2022 12:57-0500 Body weight 56.25 kg Leny Jacobsen [employer] SUPERVISOR.[employer] Work Phone: [facility] 05-11-2022 12:57-0500 Diastolic blood pressure 68 mm[Hg] Leny Jacobsen [employer] SUPER[employer]OR.[employer] Work Phone: [facility] 05-11-2022 12:57-0500 Systolic blood pressure 112 mm[Hg] Leny Jacobsen APRN.[employer] Work Phone: [facility] 02-23-2022 09:35-0400 Diastolic blood pressure 55 mm[Hg] Maude Niño MD Work Phone: [facility] 02-23-2022 09:35-0400 Heart rate 69 /min Maude Niño MD Work Phone: [facility] 02-23-2022 09:35-0400 SaO2% (BldA) [Mass fraction] 100 % Maude Niño MD Work Phone: [facility] 02-23-2022 09:35-0400 Systolic blood pressure 110 mm[Hg] Maude Niño MD Work Phone: [facility] 02-23-2022 09:25-0400 Respiratory rate 16 /min Maude Niño MD Work Phone: [facility] 02-23-2022 07:41-0400 Body temperature 98.29 [degF] Maude Niño MD Work Phone: [facility] 02-23-2022 07:41-0400 Body weight 55.6 kg Maude Niño MD Work Phone: [facility] Encounters Encounter Date Encounter Type Care Provider Facility Start: 02-05-2024 End: 02-05-2024 ambulatory LENY JACOBSEN Facility:[facility] Start: 02-05-2024 End: 02-05-2024 Subsequent hospital visit by physician Screen Mammo [facility] Mamm[facility] Comment on above: Encounter for screen ing mammogram for malignant neoplasm of breast [Z12.31] Start: 01-29-2024 End: 01-29-2024 Refill Leny Jacobsen APRN.[employer] Work Phone: OB/Gynecology Comment on above: Refill Request Start: 01-18-2024 End: 01-19-2024 Telephone encounter Leny Jacobsen APRN.[employer] Work Phone: [facility] [place] Comment on above: Orders Start: 09-26-2023 Telephone encounter Aliyah diggs APRN.[employer] Work Phone: Family Medicine [place] Comment on above: Results Start: 09-25-2023 Encounter for genera l adult medical examination without abnormal findings LENY JACOBSEN [facility] Start: 09-25-2023 End: 09-25-2023 Patient encounter procedure Aliyah Herrera APRN.CNP Work Phone: [facility] [place] Comment on above: Encounter for lipid screening for cardiovascular disease (Primary Dx); Screening for diabetes mellitus; Wellness examination; Screening for HIV (human immunodeficiency virus); Need for hepatitis B screening test; Encounter for hepatitis C screening test for low risk patient Start: 09-25-2023 End: 09-25-2023 Patient encounter status Aliyah Herrera APRN.CNP Work Phone: [facility] Start: 09-25-2023 End: 09-25-2023 ambulatory ALIYAH HERRERA Facility:[facility] Start: 02-04-2023 Documentation procedure Mammog sandy Coordinator [facility] Start: 02-04-2023 Letter encounter Mammography Coordinator [facility] Department Start: 02-03-2023 End: 02-03-2023 Subsequent hospital visit by physician Screen Mammo [facility] Mamm[facility] Comment on above: Encounter for screen ing mammogram for breast cancer [Z12.31] Start: 10-08-2022 End: 10-08-2022 Patient encounter procedure Carlene Rosario APRN.[employer] Work Phone: [place] [facility] Comment on above: Bronchitis (Primary Dx) Start: 06-25-2022 Telephone encounter Jennifer Elizabeth APRN.[employer] Work Phone: [facility] Comment on above: Results Start: 06-23-2022 End: 06-23-2022 Patient encounter procedure Monica Oseguera APRN.ISIS Work Phone: [facility] Comment on above: Urinary frequency (P rimary Dx); Dysuria Start: 05-11-2022 End: 05-11-2022 Patient encounter procedure Leny Jacobsen APRN.CNP Work Phone: OB/Gynecology Comment on above: Encounter for gyneco logical examination (general) (routine) without abnormal findings (Primary Dx); Vaginal dryness, menopausal; Encounter for screening mammogram for breast cancer; Dense breast tissue Start: 05-11-2022 End: 05-11-2022 Patient encounter status Leny Jacobsen APRN.[employer] Work Phone: OB/Gynecology Start: 02-23-2022 End: 02-23-2022 Subsequent hospital visit by physician Maude Niño MD Work Phone: Ambulatory Surgery Comment on above: Screening for colon cancer [Z12.11] Start: 01-05-2022 Orders Only Maude telles MD Work Phone: [facility] Provider Adult Comment on above: Screening for colon cancer (Primary Dx) Procedures Date Procedure Procedure Detail Performing Clinician Start: 09-25-2023 Adult depression scr eening assessment Leny Jacobsen APRN.[employer] Work Phone: Start: 09-25-2023 Lipid 1996 panel - S danielle or Plasma Aliyah Herrera APRN.[employer] Work Phone: Start: 02-03-2023 Screening digital br east tomosynthesis bi Leny Jacobsen APRN.[employer] Work Phone: Start: 06-23-2022 Urnls dip stick/tabl et rgnt auto w/o microscopy Raj Aldana APRN.[facility] Work Phone: Start: 02-23-2022 Colonoscopy flx dx w /collj spec when pfrmd Maude Niño MD Work Phone: Start: 02-23-2022 Colonoscopy Leny gonzalez APRN.[employer] Work Phone: Start: 10-27-2020 Mammography Maude Niño MD Work Phone: Start: 09-24-2015 Adult depression scr eening assessment Maude Niño MD Work Phone: Plan of Treatment Date Care Activity Detail Author Start: 02-24-2032 Colonoscopy COLONOSCOPY [facility] Start: 02-24-2032 COLORECTAL CANCER SCREENING COLORECTAL CANCER SCREENING [facility] Start: 02-24-2032 Screening for malign ant neoplasm of colon [facility] Start: 09-24-2028 Lipid panel Lipid Screening [facility] Start: 09-24-2026 Diabetes Screening Diabetes Screenin g [facility] Start: 10-09-2025 HPV TESTING HPV TESTING [facility] Start: 10-09-2025 PAP TESTING PAP TESTING [facility] Start: 10-09-2025 Screening for malign ant neoplasm of cervix [facility] Start: 09-24-2024 Anxiety Screening Anxiety Screening [facility] Start: 09-24-2024 Depression Screening Depression Scre ening [facility] Start: 09-24-2024 Hepatitis C screening Hepatitis C Sc reening [facility] Comment on above: Postponed from 04/03 (Declined at this time) Start: 09-24-2024 HIV screening HIV Screening [facility] Comment on above: Postponed from 04/03 (Declined at this time) Start: 02-05-2024 End: 02-05-2024 Patient encounter procedure 02/05/2024 12:30 PM EDT Appointment Mammogram [address] [place] [id number] Mammogram Start: 02-04-2024 Mammography Mammogram Screening [facility] Start: 02-04-2024 Screening for malign ant neoplasm of breast Mammogram Screening [facility] Start: 01-29-2024 End: 01-29-2024 Patient encounter procedure 01/29/2024 12:30 PM EDT Appointment Mammogram [address] [place] [id number] Mammogram Start: 12-24-2023 Covid-19 Vaccine () Covid-19 Vaccine () [facility] Start: 12-24-2023 Influenza vaccination [facility] Start: 09-25-2023 End: 12-25-2023 Comprehensive metabolic 2000 panel - Serum or Plasma [facility] Work Phone: Comment on above: Expected: 09/25/2023 , Expires: 12/25/2023 Start: 09-25-2023 End: 12-25-2023 Hepatitis C virus Ab [Presence] in Serum [facility] Comment on above: Expected: 09/25/2023 , Expires: 12/25/2023 Start: 09-25-2023 End: 12-25-2023 HIV 1+2 Ab [Presence] in Serum or Plasma by Immunoassay [facility] Comment on above: Expected: 09/25/2023 , Expires: 12/25/2023 Start: 09-25-2023 End: 12-25-2023 LIPID PANEL, NONFASTING [facility] Comment on above: Expected: 09/25/2023 , Expires: 12/25/2023 Start: 12-23-2022 Covid-19 Vaccine () Covid-19 Vaccine () [facility] Start: 12-23-2022 Influenza vaccination [facility] Start: 05-29-2022 Shingrix Vaccine (2 of 2) Shingrix Vaccine (2 of 2) [facility] Start: 04-24-2022 DEPRESSION ASSESSMENT DEPRESSION ASS ESSMENT [facility] Start: 12-23-2021 Influenza vaccination INFLUENZA (#1) [facility] Start: 10-27-2021 Mammography MAMMOGRAM [facility] Start: 07-28-2021 COVID-19 VACCINE (4 - Booster for Pfizer series) COVID-19 VACCINE (4 - Booster for Pfizer series) [facility] Start: 07-31-2019 Urine microalbumin profile [facility] Start: 2018 SHINGRIX VACCINE (1 of 2) SHINGRIX VACCINE (1 of 2) [facility] Start: 09-23-2016 Adult depression screening assessment DEPRESSION SCREENING [facility] Start: 2013 COLOGUARD (FIT-DNA) COLOGUARD (FIT-D NA) [facility] Start: 2013 Colonoscopy COLONOSCOPY [facility] Start: 2013 COLORECTAL CANCER SCREENING COLORECTAL CANCER SCREENING [facility] Start: [address] COLONOGRAPHY [facility] Start: 2013 DIABETES SCREEN DIABETES SCREEN [facility] Start: 2013 Diabetes Screening Diabetes Screenin g [facility] Start: 2013 FECAL OCCULT BLOOD FECAL OCCULT BLOO D [facility] Start: 2013 Lipid 1996 panel - S danielle or Plasma Lipid Screening [facility] Start: 2013 Lipid panel Lipid Screening [facility] Start: 2013 LIPID SCREEN LIPID SCREEN [facility] Start: 2013 Screening for malign ant neoplasm of colon [facility] Start: 2013 SIGMOIDOSCOPY SIGMOIDOSCOPY [facility] Start: 1986 HEPATITIS C SCREENING HEPATITIS C SC REENING [facility] Start: 1986 HIV SCREENING HIV SCREENING [facility] Start: 1968 HEPATITIS B (1 of 3 - 3-dose series) HEPATITIS B (1 of 3 - 3-dose series) [facility] Start: 1968 Hepatitis B Vaccine (1 of 3 - 3-dose series) Hepatitis B Vaccine (1 of 3 - 3-dose series) [facility] Bacteria identified in Urine by Culture URINE CULTURE Microbiology Routine Urinary frequency 06/23/2022 7:43 PM EST [facility] Work Phone: End: 02-16-2025 DBT Breast - bilateral screening FAY SCREENING [facility] Radiology Routine Encounter for screening mammogram for malignant neoplasm of breast 1 Occurrences starting 01/18/2024 until 02/16/2025 [facility] Work Phone: Comment on above: 1 Occurrences starti ng 01/18/2024 until 02/16/2025 DBT Breast - bilater al screening FAY SCREENING [facility] Radiology Routine Encounter for screening mammogram for malignant neoplasm of breast 02/05/2024 12:46 PM EDT [facility] Work Phone: End: 06-10-2023 FAY SCREENING W [facility] SCREENING [facility] Radiology Routine Encounter for screening mammogram for breast cancer Dense breast tissue 1 Occurrences starting 05/11/2022 until 06/10/2023 [facility] Work Phone: Comment on above: 1 Occurrences starti ng 05/11/2022 until 06/10/2023 End: 01-05-2023 Screening colonoscopy COLONOSCOPY SCREENING Endoscopy Routine Screening for colon cancer 1 Occurrences starting 01/05/2022 until 01/05/2023 [facility] Work Phone: Comment on above: 1 Occurrences starti ng 01/05/2022 until 01/05/2023 [facility] Immunizations Immunization Date Immunization Notes Care Provider Marshall talbot 2022 zoster vaccine recombinant Aliyah Herrera APRN.[employer] Work Phone: [facility] 01-31-2021 influenza, injectabl e, quadrivalent, preservative free Alyiah Herrera APRN.[facility] Work Phone: [facility] 01-31-2021 influenza virus vaccine, unspecified formulation Mammography Coordinator [facility] 02-04-2020 Influenza, injectabl e, Madin Madison Canine Kidney, preservative free, quadrivalent Aliyah Herrera APRN.[facility] Work Phone: [facility] 09-21-2016 hepatitis A vaccine, adult dosage Aliyah Herrera APRN.[facility] Work Phone: [facility] 09-21-2016 typhoid capsular polysaccharide vaccine Aliyah Herrera APRN.[facility] Work Phone: [facility] 07-30-2009 tetanus toxoid, redu demetrius diphtheria toxoid, and acellular pertussis vaccine, adsorbed Maude Niño MD Work Phone: [facility] 12-22-2004 tuberculin skin test ; purified protein derivative solution, intradermal Leny Jacobsen APRN.[facility] Work Phone: [facility] Work Phone: Payers Date Payer Category Payer Unknown [id number] 2021 Unknown [id number] Social History Date Type Detail Facility Start: 02-23-2022 Tobacco smoking stat [facility] Never smoked tobacco [facility] Work Phone: Start: 05-08-2021 End: 03-24-2022 Alcohol intake Current non-drinker of alcohol (finding) [facility] Start: 1970 Sex Assigned At Female C [facility] Start: 02-23-2022 Tobacco use and exposure Smokeless tobacco non-user [facility] Start: 05-11-2022 End: 09-25-2023 Alcohol intake Current drinker of alcohol (finding) [facility] Start: 05-11-2022 Alcohol Comment [facility] Start: 10-08-2022 End: 02-03-2023 History of Social function [facility] Start: 10-08-2022 End: 02-03-2023 Tobacco use panel [facility] National Score (1-10 0), lower number is lower risk 60 [facility] Start: 01-13-2021 Gender identity Identifies as female gender (finding) [facility] Start: 01-13-2021 Sexual orientation Heterosexual (fin ding) [facility] Start: 02-13-2022 End: 02-23-2022 Exposure to SARS-CoV-2 (event) Not sure [facility] Clinical Notes 01-05-2022 to 02-05-2024 Giulia Mallory Mammo Tech - 02/05/2024 12:30 PM EDTTelephone Encounter - Vida Jansen - 01/18/2024 5:49 PM EDTTelephone Encounter - Vida Jansen - 01/18/2024 5:49 PM EDTPatient Instructions Note Date & Type Note Facility 02-05-2024 History of Presen t illness Narrative Radiology Service Progress Note PATIENT NAME: Vinita Raines DATE OF SERVICE: February 05, 2024 TIME: 12:52 PM PATIENT IDENTITY VERIFICATION COMPLETED USING TWO (2) IDENTIFIERS: Name and Date of confirmed by patient verbally. FALL SCREENING: Has the patient had 2 falls in the last year or 1 fall with injury or currently using an Ambulatory Assistive Device (Walker, Cane, Wheelchair, Crutches, etc.)? No PATIENT GENDER DATA: Female. status: : No status: NO. PATIENT RELEVANT IMPLANT DATA REVIEWED: Not Applicable PATIENT PRESENTS WITH AN IMPLANTABLE OR ATTACHED MAINTENANCE SERVICE TECHNICIAN: No RADIOLOGY DEPARTMENT: Mammography PERIPHERAL IV DATA: Not applicable SIGNED BY: Brayan Mckenna February 05, 2024 12:52 PM documented in this encounter [facility] 02-05-2024 Note HNO ID: [id number] Author: GIULIA MALLORY Mammo Tech Service: ? Author Type: Paper Reel Operator Type: Progress Notes Filed: 02/05/2024 12:52 Note Text: Radiology Service Progress Note PATIENT NAME: Vinita Raines DATE OF SERVICE: February 05, 2024 TIME: 12:52 PM PATIENT IDENTITY VERIFICATION COMPLETED USING TWO (2) IDENTIFIERS: Name and Date of confirmed by patient verbally. FALL SCREENING: Has the patient had 2 falls in the last year or 1 fall with injury or currently using an Ambulatory Assistive Device (Walker, Cane, Wheelchair, Crutches, etc.)? No PATIENT GENDER DATA: Female. status: : No status: NO. PATIENT RELEVANT IMPLANT DATA REVIEWED: Not Applicable PATIENT PRESENTS WITH AN IMPLANTABLE OR ATTACHED MAINTENANCE SERVICE TECHNICIAN: No RADIOLOGY DEPARTMENT: Mammography PERIPHERAL IV DATA: Not applicable SIGNED BY: Giulia Mallory Falcon Social February 05, 2024 12:52 PM [facility] 01-18-2024 Telephone encounter Note Called patient and left a vm [facility] 01-18-2024 Miscellaneous Notes Called patient and left a vm Mamm with [facility] order pending. Lyla Swartz RN Patient is requesting her yearly mammogram. Please review and advise. Elsi Sorto January 18, 2024 9:55 AM documented in this encounter [facility] 01-18-2024 Telephone encounter Note Mamm with [facility] order pending. Lyla Swartz, RN [facility] 01-18-2024 Telephone encounter Note Patient is requesting her yearly mammogram. Please review and advise. Elsi Sorto January 18, 2024 9:55 AM [facility] 09-26-2023 Telephone encounter Note Pt called and is notified of providers results and instructions. Pt voices understanding. Maria Del Rosario Chowdary RN [facility] 09-26-2023 Miscellaneous Notes Pt called and is notified of providers results and instructions. Pt voices understanding. Maria Del Rosario Chowdary RN Please let patient know her cholesterol is slightly elevated otherwise her labs are normal. I would encourage low fat, low cholesterol diet. documented in this encounter [facility] 09-26-2023 Telephone encounter Note Please let patient know her cholesterol is slightly elevated otherwise her labs are normal. I would encourage low fat, low cholesterol diet. [facility] 09-25-2023 Note HNO ID: [id number] Author: ALIYAH HERRERA APRN.ISIS Service: ? Author Type: Nurse Practitioner Type: Progress Notes Filed: 09/25/2023 14:29 Note Text: Chief Complaint Patient presents with: [facility] Vinita Raines is a 53 year old female who presents here today for Above Complaints.. [facility] Past medical history, appointments, medications, allergies reviewed. Previous Medical History PAST MEDICAL HISTORY Diagnosis Date H/O bee sting allergy treated with oral antihistamines Previous Surgical History PAST SURGICAL HISTORY Procedure Laterality Date COLONOSCOPY 02/23/2022 repeat in 10 years LIG/TRNSXJ FLP TUBE ABDL/VAG APPR UNI/BI TONSILLECTOMY HX Family History FAMILY HISTORY Problem Relation Age of Onset No Known Problems Mother Cancer Father PROSTATE Heart Father A Fib No Known Problems Sister No Known Problems Sister Breast Cancer Maternal Grandmother Diabetes Maternal Grandfather Stroke Paternal Grandfather No Known Problems Daughter No Known Problems Son Breast Cancer Other maternal cousin, negative genetic test for inheritable form Patient Allergies ALLERGIES Allergen Reactions Bees Seasonal Allergies Itching eyes Current Medications Current Outpatient Medications on File Prior to Visit Medication Sig estradiol (ESTRACE) 0.01 % (0.1 mg/gram) vaginal cream Use 0.5 g vaginally two times a week. MULTIVITAMIN ORAL Take by mouth. phenazopyridine (PYRIDIUM) 200 mg tablet Take 1 tablet by mouth three times daily as needed. (Patient not taking: Reported on 09/25/2023) No current facility-administered medications on file prior to visit. Social History Social History Tobacco Use Smoking status: Never Smokeless tobacco: Never Vaping Use Vaping Use: Never used Substance Use Topics Alcohol use: Yes Comment: occasional Drug use: No Review of Symptoms REVIEW OF SYSTEMS GENERAL: No weight loss, malaise or fevers HEENT: No changes in hearing or vision, no nose bleeds or other nasal problems NECK: Negative for lumps, goiter, pain and significant neck swelling RESPIRATORY: Negative for cough, hemoptysis, wheezing, COPD, dyspnea or shortness of breath CARDIOVASCULAR: Negative for chest pain, leg swelling, hypertension, CHF or palpitations GI: No nausea, vomiting, or diarrhea : No history of dysuria, frequency or incontinence PRIME BROKER: Negative for abnormal vaginal bleeding, abnormal vaginal discharge MUSCULOSKELETAL: Negative for joint pain or swelling, back pain or muscle pain SKIN: Negative for lesions, rash, and itching PSYCH: Negative for sleep disturbance, mood disorder and recent psychosocial stressors HEMATOLOGY/LYMPHOLOGY: Negative for prolonged bleeding, bruising easily or swollen nodes ENDOCRINE: Negative for cold or heat intolerance, polyuria, polydipsia and goiter NEURO: No history of headaches, syncope, paralysis, seizures or tremors EXAM: BP 115/75 Pulse 69 Resp 14 Wt 54.9 kg (121 lb) LMP 09/24/2018 BMI 22.31 kg/m? General Appearance: Well appearing, alert, in no acute distress, well-hydrated, well nourished.. Skin: Skin color, texture, turgor normal, no suspicious rashes or lesions. Lungs: Lungs clear to auscultation. No wheezing, rhonchi, rales.. Heart: RRR without murmur, gallop, or rubs. No ectopy. Abdomen: Normal abdominal exam, Abdomen soft, non-tender. Bowel sounds normal. No masses, organomegaly. Musculoskeletal: No joint swelling, deformity, or tenderness. Peripheral Pulses: Normal. Neurologic: Gait normal. Reflexes normal and symmetric. Sensation grossly intact.. Health Maintenance List Hepatitis C Screening Never done HIV Screening Never done Hepatitis B Vaccine(1 of 3 - 19+ 3-dose series) Never done Lipid Screening Never done Diabetes Screening Never done DTaP,Tdap,Td Vaccine(2 - Td or Tdap) due on 07/31/2019 Shingrix Vaccine(2 of 2) due on 05/29/2022 Covid-19 Vaccine( season) due on 12/23/2022 Behavioral Health Screening Never done Mammogram Screening due on 02/04/2024 Influenza Vaccine(Season Ended) due on 12/24/2023 Pap Testing due on 10/09/2025 HPV Testing due on 10/09/2025 Colorectal Cancer Screening due on 02/24/2032 ASSESSMENT/PLAN: 1. Encounter for lipid screening for cardiovascular disease - ICD9: V77.91, V81.2, ICD10: Z13.220, Z13.6 (primary diagnosis) - LIPID PANEL, NONFASTING 2. Screening for diabetes mellitus - ICD9: V77.1, ICD10: Z13.1 - HEMOGLOBIN A1C 3. Wellness examination - ICD9: V70.0, ICD10: Z00.00 - Counseled on healthy diet and regular exercise - Discussed need and benefit for weight loss. BMI 22.31 kg/(m2) - COMPLETE BLOOD COUNT AND DIFFERENTIAL - COMPREHENSIVE METABOLIC PANEL 4. Screening for HIV (human immunodeficiency virus) - ICD9: V73.89, ICD10: Z11.4 - HIV 1/2 COMBO WITH REFLEX TO DIFFERENTIATION 5. Encounter for hepatitis C screening test for low risk (more content not included)... [facility] 09-25-2023 History of Presen t illness Narrative Chief Complaint Patient presents with: [facility] Vinita Raines is a 53 year old female who presents here today for Above Complaints.. [facility] Past medical history, appointments, medications, allergies reviewed. Previous Medical History PAST MEDICAL HISTORY Diagnosis Date H/O bee sting allergy treated with oral antihistamines Previous Surgical History PAST SURGICAL HISTORY Procedure Laterality Date COLONOSCOPY 02/23/2022 repeat in 10 years LIG/TRNSXJ FLP TUBE ABDL/VAG APPR UNI/BI TONSILLECTOMY HX Family History FAMILY HISTORY Problem Relation Age of Onset No Known Problems Mother Cancer Father PROSTATE Heart Father A Fib No Known Problems Sister No Known Problems Sister Breast Cancer Maternal Grandmother Diabetes Maternal Grandfather Stroke Paternal Grandfather No Known Problems Daughter No Known Problems Son Breast Cancer Other maternal cousin, negative genetic test for inheritable form Patient Allergies ALLERGIES Allergen Reactions Bees Seasonal Allergies Itching eyes Current Medications Current Outpatient Medications on File Prior to Visit Medication Sig estradiol (ESTRACE) 0.01 % (0.1 mg/gram) vaginal cream Use 0.5 g vaginally two times a week. MULTIVITAMIN ORAL Take by mouth. phenazopyridine (PYRIDIUM) 200 mg tablet Take 1 tablet by mouth three times daily as needed. (Patient not taking: Reported on 09/25/2023) No current facility-administered medications on file prior to visit. Social History Social History Tobacco Use Smoking status: Never Smokeless tobacco: Never Vaping Use Vaping Use: Never used Substance Use Topics Alcohol use: Yes Comment: occasional Drug use: No Review of Symptoms REVIEW OF SYSTEMS GENERAL: No weight loss, malaise or fevers HEENT: No changes in hearing or vision, no nose bleeds or other nasal problems NECK: Negative for lumps, goiter, pain and significant neck swelling RESPIRATORY: Negative for cough, hemoptysis, wheezing, COPD, dyspnea or shortness of breath CARDIOVASCULAR: Negative for chest pain, leg swelling, hypertension, CHF or palpitations GI: No nausea, vomiting, or diarrhea : No history of dysuria, frequency or incontinence PRIME BROKER: Negative for abnormal vaginal bleeding, abnormal vaginal discharge MUSCULOSKELETAL: Negative for joint pain or swelling, back pain or muscle pain SKIN: Negative for lesions, rash, and itching PSYCH: Negative for sleep disturbance, mood disorder and recent psychosocial stressors HEMATOLOGY/LYMPHOLOGY: Negative for prolonged bleeding, bruising easily or swollen nodes ENDOCRINE: Negative for cold or heat intolerance, polyuria, polydipsia and goiter NEURO: No history of headaches, syncope, paralysis, seizures or tremors EXAM: BP 115/75 Pulse 69 Resp 14 Wt 54.9 kg (121 lb) LMP 09/24/2018 BMI 22.31 kg/m General Appearance: Well appearing, alert, in no acute distress, well-hydrated, well nourished.. Skin: Skin color, texture, turgor normal, no suspicious rashes or lesions. Lungs: Lungs clear to auscultation. No wheezing, rhonchi, rales.. Heart: RRR without murmur, gallop, or rubs. No ectopy. Abdomen: Normal abdominal exam, Abdomen soft, non-tender. Bowel sounds normal. No masses, organomegaly. Musculoskeletal: No joint swelling, deformity, or tenderness. Peripheral Pulses: Normal. Neurologic: Gait normal. Reflexes normal and symmetric. Sensation grossly intact.. Health Maintenance List Hepatitis C Screening Never done HIV Screening Never done Hepatitis B Vaccine(1 of 3 - 19+ 3-dose series) Never done Lipid Screening Never done Diabetes Screening Never done DTaP,Tdap,Td Vaccine(2 - Td or Tdap) due on 07/31/2019 Shingrix Vaccine(2 of 2) due on 05/29/2022 Covid-19 Vaccine(2022- season) due on 12/23/2022 Behavioral Health Screening Never done Mammogram Screening due on 02/04/2024 Influenza Vaccine(Season Ended) due on 12/24/2023 Pap Testing due on 10/09/2025 HPV Testing due on 10/09/2025 Colorectal Cancer Screening due on 02/24/2032 ASSESSMENT/PLAN: 1. Encounter for lipid screening for cardiovascular disease - ICD9: V77.91, V81.2, ICD10: Z13.220, Z13.6 (primary diagnosis) - LIPID PANEL, NONFASTING 2. Screening for diabetes mellitus - ICD9: V77.1, ICD10: Z13.1 - HEMOGLOBIN A1C 3. Wellness examination - ICD9: V70.0, ICD10: Z00.00 - Counseled on healthy diet and regular exercise - Discussed need and benefit for weight loss. BMI 22.31 kg/(m^2) - COMPLETE BLOOD COUNT AND DIFFERENTIAL - COMPREHENSIVE METABOLIC PANEL 4. Screening for HIV (human immunodeficiency virus) - ICD9: V73.89, ICD10: Z11.4 - HIV 1/2 COMBO WITH REFLEX TO DIFFERENTIATION 5. Encounter for hepatitis C screening test for low risk patient - ICD9: V73.89, ICD10: Z11.59 - HEPATITIS C ANTIBODY IA WITH CONFIRMATION Aliyah Herrera APRN.ISIS documented in this encounter [facility] 02-04-2023 Miscellaneous Notes February 06, 2023 PID: [id number] Vinita Raines [address] [place] [address] Dear Ms. Raines, We are pleased to [...] report will be kept on file at [facility] as part of your permanent medical record and are available for your continuing care. Thank you for allowing us to help in meeting your health care needs. Sincerely, Dr. Magana Interpreting Radiologist [facility] (Normal over 40) documented in this encounter [facility] 02-03-2023 History of Presen t illness [...] 2023 8:49 AM documented in this encounter [facility] 10-08-2022 Instructions Carlene Rosario APRN.ISIS - 10/08/2022 3:17 PM EDT If symptoms do not improve, start zpack Start Prednisone 20 mg daily for 5 days. Stay well hydrated. Recommend using Flonase 1-2 times per day. May use over the counter cold and cough medication as needed. Follow up as needed. documented in this encounter [facility] 10-08-2022 History of Presen t illness [...] at bed time. Will be going to [place] in the next 10 days. PAST MEDICAL [...] daily for 5 days. - May use aizf-vuk-apxdvyq cold and cough medication as needed for symptom management. - AZITHROMYCIN 250 MG TABLET - PREDNISONE 20 MG TABLET Follow-up as needed or sooner if symptoms do not improve. Discussed treatment plan and patient voices understanding. Patient's questions answered appropriately. Medications and potential side effects were discussed and patient voices understanding. Carlene Rosario APRN.ISIS This note was partially generated using [employer] logo voice recognition system. Note was reviewed for accuracy. There may be minor misspellings or grammar miscues with [employer] voice recognition. documented in this encounter [facility] 06-25-2022 Miscellaneous Notes Was called and states she feels so much better on the antibiotic. Patient is getting continue antibiotic until it is completed. Patient will follow-up if anything new arises. documented in this encounter [facility] 06-23-2022 History of Presen t illness Narrative Subjective HPI July Diane Raines is a 52 year old [...] Monica Oseguera APRN.CNP documented in this encounter [facility] 06-23-2022 Instructions Monica Oseguera APRN.CNP - [...] expected course of illness Monica Oseguera APRN.CNP [facility] PATIENT INFO BLADDER INFECTION OVERVIEW [...] have an infection. 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 Left lateral position. Sedated, but responds to verbal stimuli. Color normal; skin warm and dry. Respirations wnl and unlabored. Abdomen soft and with + bowel sounds in quads X 4. Patient resting comfortably. Celia Sandoval RN documented in this encounter [facility] 02-23-2022 History and physical note UPDATED [...] and appropriate Impression: screening for colon cancer Discussion/Plan/Recommendations: I have discussed the above with the [...] has no further questions. Maude Niño MD HISTORY AND PHYSICAL Vinita Raines 1970 REFERRING [...] and appropriate Impression: screening for colon cancer Discussion/Plan/Recommendations: I have discussed the above with the [...] Maude Niño MD documented in this encounter [facility] 01-05-2022 Instructions Maude Niño MD - 01/05/2022 10:45 AM EDT Images from the original note were not included. Bowel Preparation Instructions for: Golytely, Nulytely, Trilyte or Colyte (polyethylene glycol 3350 and electrolytes) IF YOU DO NOT FOLLOW THESE DIRECTIONS, YOUR COLONOSCOPY WILL BE CANCELLED. Girodano Instructions: Your bowel must be empty so [...] If you do not have a responsible winch driver (family member or friend) with you [...] preparation [facility] 1 03/2019 Bowel Preparation Instructions for: Golytely, Nulytely, [...] exam. 2 03/2019 documented in this encounter [facility] Evaluation note Diagnosis Screening for colon cancer- Primary Special screening for malignant neoplasms, colon [facility] Diagnosis Encounter for gynecological examination (general) (routine) without abnormal findings- Primary Vaginal dryness, menopausal Symptomatic menopausal or female climacteric states Encounter for screening mammogram for breast cancer Dense breast tissue [facility] Diagnosis Urinary frequency- Primary Dysuria [facility] Diagnosis Bronchitis- Primary Bronchitis, not specified as acute or chronic [facility] Diagnosis Encounter for screening mammogram for breast cancer Dense breast tissue [facility] Diagnosis Screening for colon cancer- Primary Special screening for malignant neoplasms, colon [facility] Diagnosis Encounter for lipid screening for cardiovascular disease- Primary Screening for lipoid disorders Screening for diabetes mellitus Wellness examination Screening for HIV (human immunodeficiency virus) Special screening examination for other specified viral diseases Need for hepatitis B screening test Encounter for hepatitis C screening test for low risk patient [facility] Diagnosis Encounter for screening mammogram for malignant neoplasm of breast- Primary Other screening mammogram [facility] Diagnosis Vaginal dryness, menopausal Symptomatic menopausal or female climacteric states [facility] Diagnosis Encounter for screening mammogram for malignant neoplasm of breast Other screening mammogram documented in this encounter [facility] for referral (narrative)* Outpatient Procedure (Routine) - Authorized Specialty Diagnoses / Procedures Referred By Contac t Referred To Contact [facility] Diagnoses Screening for colon cancer Procedures COLONOSCOPY SCREENING COLONOSCOPY FLX DX W/COLLJ SPEC WHEN Maude Sanders MD [address] [place] [address] [facility] [place] [address] Referral ID Status Reason Start Date Expiration Date Visits Requested Visits Authorized [id number] Authorized Auto-Generat ed Referral 01/05/2022 01/05/2023 [facility] Diagnostic Procedure Only (Routine) - Authorized Specialty Diagnoses / Procedures Referred By Contac t Referred To Contact [facility] Diagnoses Encounter for screening mammogram for breast cancer Dense breast tissue Procedures FAY SCREENING W ELLIS SCREENING DIGITAL BREAST TOMOSYNTHESIS BI SCREENING MAMMOGRAPHY BI 2-VIEW BREAST INC Leny Dean APRN.[employer] [address] [place] [place] [address] [facility] [address] [place] [address] Referral ID Status Reason Start Date Expiration Date Visits Requested Visits Authorized [id number] Authorized Auto-Generat ed Referral 05/11/2022 06/10/2023 1 1 [facility] for referral (narrative)* Diagnostic Procedure Only (Routine) - Closed Specialty Diagnoses / Procedures Referred By Contac t Referred To Contact [facility] Diagnoses Encounter for screening mammogram for breast cancer Dense breast tissue Procedures FAY SCREENING W ELLIS SCREENING DIGITAL BREAST TOMOSYNTHESIS BI SCREENING MAMMOGRAPHY BI 2-VIEW BREAST INC Leny Dean APRN.[employer] [address] [place] [place] [address] [facility] [address] [place] [phone] Referral ID Status Reason Start Date Expiration Date V isits Requested Visits Authorized [id number] Closed Auto-Generate d Referral 05/11/2022 06/10/2023 1 1 [facility] for referral (narrative)* Outpatient Procedure (Routine) - Closed Specialty Diagnoses / Procedures Referred By Contac t Referred To Contact [facility] Diagnoses Screening for colon cancer Procedures COLONOSCOPY SCREENING COLONOSCOPY FLX DX W/COLLJ SPEC WHEN Maude Sanders MD [address] [place] [address] [facility] [address] [place] [address] Referral ID Status Reason Start Date Expiration Date V isits Requested Visits Authorized [id number] Closed Auto-Generate d Referral 01/05/2022 01/05/2023 1 1 [facility] for referral (narrative)* Diagnostic Procedure Only (Routine) - Authorized Specialty Diagnoses / Procedures Referred By Kp t Referred To Contact [facility] Diagnoses Encounter for screening mammogram for malignant neoplasm of breast Procedures FAY SCREENING W ELLIS SCREENING DIGITAL BREAST TOMOSYNTHESIS BI SCREENING MAMMOGRAPHY BI 2-VIEW BREAST INC Leny Dean APRN.[employer] [address] [place] [place] [address] [facility] [address] [place] [address] Referral ID Status Reason Start Date Expiration Date Visits Requested Visits Authorized [id number] Authorized Auto-Generat ed Referral 01/18/2024 02/16/2025 1 1 [facility] for visit Narrative* Diagnostic Procedure Only (Routine) - Closed Specialty Diagnoses / Procedures Referred By Kp t Referred To Contact [facility] Diagnoses Encounter for screening mammogram for breast cancer Dense breast tissue Procedures FAY SCREENING W ELLIS SCREENING DIGITAL BREAST TOMOSYNTHESIS BI SCREENING MAMMOGRAPHY BI 2-VIEW BREAST INC CAD Leny Jacobsen APRN.[employer] [address] [place] [place] [address] [facility] [address] [place] [address] Referral ID Status Reason Start Date Expiration Date V isits Requested Visits Authorized [id number] Closed Auto-Generate d Referral 05/11/2022 06/10/2023 1 1 [facility] for visit Narrative* Outpatient Procedure (Routine) - Closed Specialty Diagnoses / Procedures Referred By Kp t Referred To Contact [facility] Diagnoses Screening for colon cancer Procedures COLONOSCOPY SCREENING COLONOSCOPY FLX DX W/COLLJ SPEC WHEN Maude Sanders MD [address] [place] [address] [facility] [address] [place] [address] Referral ID Status Reason Start Date Expiration Date V isits Requested Visits Authorized [id number] Closed Auto-Generate d Referral 01/05/2022 01/05/2023 1 1 [facility] Diagnostic Procedure Only (Routine) - Closed Specialty Diagnoses / Procedures Referred By Kp lagunas Referred To Contact [facility] Diagnoses Encounter for screening mammogram for malignant neoplasm of breast Procedures FAY SCREENING W ELLIS SCREENING DIGITAL BREAST TOMOSYNTHESIS BI SCREENING MAMMOGRAPHY BI 2-VIEW BREAST INC Leny Dean, MELT HOUSE SUPERVISOR.[employer] [address] [place] [address] [facility] [address] [place] [address] Referral ID Status Reason Start Date Expiration Date V isits Requested Visits Authorized [id number] Closed Auto-Generate d Referral 01/18/2024 02/16/2025 1 1 [facility] Medications Administered Section Inactive Administered Medications - [...] Given 02/23/2022 8:30 AM EDT 50 mcg Given 02/23/2022 8:22 AM EDT 50 mcg lactated ringers iv infusion 75 mL/hr, INTRAVENOUS, CONTINUOUS, Starting on Mon02/23/22 at 0800, Until Mon02/23/22 at 0900, Preprocedure New Bag/Syringe/Bottle 02/23/2022 7:45 AM EDT 75 mL/hr 75 mL/hr Arm, Left midazolam (PF) 1-5 mg injection (VERSED) 1-5 mg, INTRAVENOUS, DIRECTED, Starting on Mon02/23/22 at 0900, Until Mon02/23/22 at 1259, DOSING DIRECTED BY PHYSICIAN FOR PROCEDURAL SEDATION ONLY, Intraprocedure Given 02/23/2022 8:39 AM EDT 2 mg Given 02/23/2022 8:30 AM EDT 2 mg Given 02/23/2022 8:26 AM EDT 2 mg Summary Purpose Family History No Family History Records Found Advance Directives No Advanced Directives Records Found Additional Source Comments Source Comments (unrecognize d section and content) In the event this informatio n is protected by the Federal Confidentiality of Alcohol and Drug Abuse Patient Records regulations: The Federal rules restrict any use of the information to criminally investigate or prosecute any alcohol or drug abuse patient.[facility] event this information is protected by the Federal Confidentiality of Alcohol and Drug Abuse Patient Records regulations: The Federal rules restrict any use of the information to criminally investigate or prosecute any alcohol or drug abuse patient.[facility] the event this information is protected by the Federal Confidentiality of Alcohol and Drug Abuse Patient Records regulations: The Federal rules restrict any use of the information to criminally investigate or prosecute any alcohol or drug abuse patient.[facility] the event this information is protected by the Federal Confidentiality of Alcohol and Drug Abuse Patient Records regulations: The Federal rules restrict any use of the information to criminally investigate or prosecute any alcohol or drug abuse patient.[facility] the event this information is protected by the Federal Confidentiality of Alcohol and Drug Abuse Patient Records regulations: The Federal rules restrict any use of the information to criminally investigate or prosecute any alcohol or drug abuse patient.[facility] the event this information is protected by the Federal Confidentiality of Alcohol and Drug Abuse Patient Records regulations: The Federal rules restrict any use of the information to criminally investigate or prosecute any alcohol or drug abuse patient.[facility] the event this information is protected by the Federal Confidentiality of Alcohol and Drug Abuse Patient Records regulations: The Federal rules restrict any use of the information to criminally investigate or prosecute any alcohol or drug abuse patient.[facility] the event this information is protected by the Federal Confidentiality of Alcohol and Drug Abuse Patient Records regulations: The Federal rules restrict any use of the information to criminally investigate or prosecute any alcohol or drug abuse patient.[facility] the event this information is protected by the Federal Confidentiality of Alcohol and Drug Abuse Patient Records regulations: The Federal rules restrict any use of the information to criminally investigate or prosecute any alcohol or drug abuse patient.[facility] the event this information is protected by the Federal Confidentiality of Alcohol and Drug Abuse Patient Records regulations: The Federal rules restrict any use of the information to criminally investigate or prosecute any alcohol or drug abuse patient.[facility] the event this information is protected by the Federal Confidentiality of Alcohol and Drug Abuse Patient Records regulations: The Federal rules restrict any use of the information to criminally investigate or prosecute any alcohol or drug abuse patient.[facility] the event this information is protected by the Federal Confidentiality of Alcohol and Drug Abuse Patient Records regulations: The Federal rules restrict any use of the information to criminally investigate or prosecute any alcohol or drug abuse patient.[facility] the event this information is protected by the Federal Confidentiality of Alcohol and Drug Abuse Patient Records regulations: The Federal rules restrict any use of the information to criminally investigate or prosecute any alcohol or drug abuse patient.[facility] Reason for Visit (unrecogniz ed section and content) Reason Comments Well Woman Reason Comments Urinary Problem Pt reported burning with urination, x1 day. Reason Comments Results Reason Comments Cough Cough x 10 days Reason Comments Establish Care Reason Comments Orders Reason Onset Date Comments Refill Request 01/29/2024 Care Teams (unrecognized sec tion and content) School Psychology Specialist Relationship Specialty Start Date End Date Aliyah Herrera APRN.[employer] [address], [place] [phone] PCP - General Family Medicine 09/25/23 School Psychology Specialist Relationship Specialty Start Date End Date Aliyah Herrera APRN.ISIS [address], [place] [phone] PCP - General Family Medicine 09/25/23 School Psychology Specialist Relationship Specialty Start Date End Date Aliyah Herrera APRN.[employer] [address] [place] [phone] PCP - General Family Medicine 09/25/23 School Psychology Specialist Relationship Specialty Start Date End Date Aliyah Herrera APRN.[employer] [address] [place] [phone] PCP - General Family Medicine 09/25/23 School Psychology Specialist Relationship Specialty Start Date End Date Aliyah Herrera APRN.[employer] [address] [place] [phone] PCP - General Family Medicine 09/25/23 INFORMATION SOURCE (unrecogn ized section and content) DATE CREATED AUTHOR 02/07/2024 [facility] FOR RECORDS PERTAINING TO PATIENTS WHO ARE [...] BE BASED ON THE PRIMARY CLINICAL RECORDS. [facility] [employer] provides no warranty or guarantee of the accuracy or completeness of information in this document.
[2024-02-18] MEDS: Diphth,Pertuss(Acell),Tet Vac 0.5 ML Vial IM (13:30)
--- NOTE | 2024-02-18 13:30 | EX.ED.DYSGE1 ---
HPI <ILYA Willoughby - Last Filed: 02/18/24 13:33> History of Present Illness Chief Complaint: Laceration Narrative Narrative: Patient is a 53-year-old female with no significant ankle history who was washing dishes, and something slipped and she cut the dorsal aspect of the right index finger. Patient is full range of motion, tetanus vaccination unknown. Patient states that she is here because she needs stitches. Denies any other injury. <Dr. Power Gee DO - Last Filed: 02/18/24 22:27> Narrative Narrative: Patient is a 53-year-old female with no significant past medical history who was washing dishes, and something slipped and she cut the dorsal aspect of the right index finger. Patient is full range of motion, tetanus vaccination unknown. Patient states that she is here because she needs stitches. Denies any other injury. PFSH <ILYA Willoughby - Last Filed: 02/18/24 13:33> [facility] Medical History (Updated 02/18/24 @ 13:33 by ILYA Willoughby) Laceration Home Medications ?Medication ?Instructions ?Recorded ?Last Taken ?Type oxycodone-acetaminophen 5 mg-325 1 - 2 tab PO Q4H PRN PRN Pain #30 01/07/15 Unknown Rx mg tablet tabs Allergy/AdvReac Type Severity Reaction Status Date / Time No Known Allergies Allergy Verified 02/18/24 12:47 Social History Smoking Status: Never smoker ROS <ILYA Willoughby - Last Filed: 02/18/24 13:33> ROS ED ROS Narrative Constitutional: Negative for fever, chills, weight loss, weakness Eyes: Negative for vision loss, vision change, double vision ENT: Negative for any sore throat, ear pain, congestion Cardiovascular: Negative for any chest pain, tightness, palpitations Respiratory: Negative for any cough, sputum production, hemoptysis, dyspnea, dyspnea on exertion, orthopnea Gastrointestinal: Negative for any abdominal pain, nausea, vomiting, diarrhea, constipation, blood in stool, blood in vomit : Negative for any urinary frequency, dysuria, retention, blood in urine Muscle skeletal: Negative for any neck pain, back pain Neurological: Negative for any headache, syncope, dizziness Skin: Negative for any rashes, itching, abrasions. Positive for laceration of the right index finger Psychiatric: Negative for any depression, anxiety, stress, suicidal ideation, homicidal ideation Hematologic: Negative for any excessive bruising, easy bleeding EXAM <ILYA Willoughby - Last Filed: 02/18/24 13:33> Physical Exam Narrative Exam Narrative: Vital signs reviewed. Extremities: No peripheral edema, no signs of gross trauma or deformity. Active full range of motion of all extremities. Patient is a 2 cm curved laceration to the dorsal aspect of the right index finger, this is just below the PIP joint. There is no tendon involvement. Able to flex and extend with against resistance. There is no evidence of tension of Vitas. Neuro: Cranial nerves II through XII intact, no focal neurological deficits. Skin: Clean dry and intact with no rash, purpura, petechiae, vesicles or pustules. Backs/flank: No CVA tenderness, no midline spinal tenderness, no deformity. Psych: Normal mood and affect. No SI, HI or acute psychosis. Const Vital Signs: 02/18/24 12:47 Temperature 97.2 F L Temperature Source Temporal Pulse Rate 72 Respiratory Rate 16 Blood Pressure 123/69 H Blood Pressure Mean 87 Pulse Ox 100 Oxygen Delivery Method Room Air Positive well nourished and well developed General Appearance ED: well developed <Dr. Power Gee, DO - Last Filed: 02/18/24 22:27> Physical Exam Const Vital Signs: 02/18/24 12:47 Temperature 97.2 F L Temperature Source Temporal Pulse Rate 72 Respiratory Rate 16 Blood Pressure 123/69 H Blood Pressure Mean 87 Pulse Ox 100 Oxygen Delivery Method Room Air MDM <ILYA Willoughby - Last Filed: 02/18/24 13:33> [facility] Treatment and Re-Evaluation :: Differential diagnosis includes however is not limited to: Tendon involvement, simple laceration, complex laceration, open fracture Patient appears generally well, vital signs are stable, patient is nontoxic-appearing. Presenting to the emergency department with complaints of laceration of the dorsal aspect of the right index finger. The area was clean, I do not believe that any imaging is necessary. However this will require sutures. Patient's physical examination showed no concern for any tendon involvement.\ Procedure note: Sterile gloves, sterile drapes were used, was able to another times the area with lidocaine. The laceration was a curved laceration roughly 2 cm, is able close this area with 4 simple interrupted sutures of 4-0 Ethilon. Edges approximated nicely, patient did well. Patient placed in a finger splint to ensure integrity of the sutures. She will have these removed in 7 to 10 days. Given signs and symptoms of infection. All questions answered, stable for discharge. <Dr. Power Gee, DO - Last Filed: 02/18/24 22:27> [facility] MDM Narrative Medical decision making narrative: I have personally performed a face to face assessment of the patient and have reviewed the JOSE ALFREDO Note. I performed a substantive portion of the visit including all aspects of the following. My vital findings include: History: Patient presents with laceration to her right index finger that occurred today. Patient is right-hand dominant. Patient was washing dishes when one of the dishes slipped and cut her right index finger. Patient denies any paresthesias or weakness. Patient describes her pain as aching. Patient is unsure of her last tetanus but thinks it was probably 10 years ago. Patient states bleeding has been persistent. Exam: Vital signs are stable. Patient is afebrile. Patient is in no acute distress. Skin is warm and dry. There is a 2 cm full-thickness linear laceration over the dorsal aspect of the proximal phalanx of the right index finger. There is mild gapping of the wound margins. There are no foreign bodies noted. There is no extensor tendon laceration noted. Strength is 5/5 in extension of the MP, PIP, and DIP joints. Sensation was intact to light touch in all digits. Capillary refills less than 2 seconds in all digits. Medical Decision Making: Patient was advised of the need for suture repair. Patient was agreeable with this. The wound was cleaned and irrigated with copious muscle normal saline. The wound was anesthetized 1% lidocaine locally. The wound was closed with 4 simple interrupted #4-0 nylon sutures under sterile technique. This was performed by the JOSE ALFREDO under my supervision. Patient tolerated procedure well. Bacitracin dressing was applied. Patient was instructed to follow-up with her primary care physician in 7 days for wound recheck and suture removal. Patient understood and was agreeable with the plan. All questions were answered. Discharge Plan Triage Chief Complaint: Laceration ED Midlevel Provider: Khari Gonzalez ED Provider: Power Gee Dx/Rx/DC Orders Clinical Impression: Finger laceration Instructions: ED Laceration Extremity Prescriptions: No Action oxycodone-acetaminophen 1 TABLET tablet 1 - 2 tab PO Q4H PRN PRN (Reason: Pain) Qty: 30 0RF Primary Care Provider: Care Physician,No Primary Referrals: Care Physician,No Primary [Primary Care Provider] - Activity Restrictions/Additional Instructions: Please follow-up outpatient. Have the sutures removed in 7 to 10 days. Print Language: Jamaican Disposition Disposition: Home, Self Care Discharge Date/Time: 02/18/24 13:40
== END 2024-02-18 13:40 | disposition home or self-care (01) ==
PROVIDERS: Emergency Provider Emergency Medicine; Visit Provider Emergency Medicine
DX: S61.210A Laceration without foreign body of right index finger without damage to nail, initial encounter (principal); W26.8XXA Contact with other sharp object(s), not elsewhere classified, initial encounter; Z23 Encounter for immunization
CPT/HCPCS: 12001; 90471; 90715; 99283